=== PATIENT | female | born 1970 | race Caucasian/White ===

== ENCOUNTER 2018-08-08 05:47 | Emergency (ER) | payer SELFPAY ==
--- NOTE | 2018-08-08 07:29 | EDPHYS ---
Physician Documentation [facility] Name: Rachael Barrera Age: 48 yrs Sex: Female : 1970 Arrival Date: 08/08/2018 Time: 05:52 Bed 5 Private MD: ED Physician Mateo Coffey HPI: 08/08 06:20 This 48 yrs old Female presents to ER via Ambulatory with complaints of Ear jr8 Pain. 06:20 The patient presents with pain. The complaints affect the left ear. Onset: The jr8 symptoms/episode began/occurred acutely, yesterday. Modifying factors: The symptoms are alleviated by nothing, the symptoms are aggravated by nothing. Associated signs and symptoms: The patient has no apparent associated signs or symptoms. Severity of symptoms: At their worst the symptoms were mild in the emergency department the symptoms are unchanged. The patient has not experienced similar symptoms in the past. The patient has not recently seen a physician. Patient also wanting to be seen for vaginal pressure. Stated that she feels that she has a ball like feeling in her vagina . 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 - Social history:: Smoking status: Patient uses tobacco products, cigars. - Ebola Screening: : No symptoms or risks identified at this time. ROS: 06:20 Eyes: Negative for injury, pain, redness, and discharge, Neck: Negative for injury, jr8 pain, and swelling, Cardiovascular: Negative for chest pain, palpitations, and edema, Respiratory: Negative for shortness of breath, cough, wheezing, and pleuritic chest pain, Abdomen/GI: Negative for abdominal pain, nausea, vomiting, diarrhea, and constipation, Back: Negative for injury and pain, MS/Extremity: Negative for injury and deformity, Skin: Negative for injury, rash, and discoloration, Neuro: Negative for headache, weakness, numbness, tingling, and seizure. 06:20 ENT: Positive for ear pain, Negative for drainage from ear(s), rhinorrhea, sinus congestion, sinus pain, sore throat. 06:20 : Positive for pelvic pain, Negative for urinary symptoms, vaginal bleeding, vaginal discharge, vaginal itching, menstrual abnormality. Exam: 06:20 Eyes: Pupils equal round and reactive to light, extra-ocular motions intact. Lids and jr8 lashes normal. Conjunctiva and sclera are non-icteric and not injected. Cornea within normal limits. Periorbital areas with no swelling, redness, or edema. ENT: Nares patent. No nasal discharge, no septal abnormalities noted. Tympanic membranes are normal and external auditory canals are clear. Oropharynx with no redness, swelling, or masses, exudates, or evidence of obstruction, uvula midline. Mucous membranes moist. Neck: Trachea midline, no thyromegaly or masses palpated, and no cervical lymphadenopathy. Supple, full range of motion without nuchal rigidity, or vertebral point tenderness. No Meningismus. Cardiovascular: Regular rate and rhythm with a normal S1 and S2. No gallops, murmurs, or rubs. Normal PMI, no JVD. No pulse deficits. Respiratory: Lungs have equal breath sounds bilaterally, clear to auscultation and percussion. No rales, rhonchi or wheezes noted. No increased work of breathing, no retractions or nasal flaring. Abdomen/GI: Soft, non-tender, with normal bowel sounds. No distension or tympany. No guarding or rebound. No evidence of tenderness throughout. Back: No spinal tenderness. No costovertebral tenderness. Full range of motion. Skin: Warm, dry with normal turgor. Normal color with no rashes, no lesions, and no evidence of cellulitis. MS/ Extremity: Pulses equal, no cyanosis. Neurovascular intact. Full, normal range of motion. Neuro: Awake and alert, GCS 15, oriented to person, place, time, and situation. Cranial nerves II-XII grossly intact. Motor strength 5/5 in all extremities. Sensory grossly intact. Cerebellar exam normal. Normal gait. 07:22 : Pelvic Exam: External exam: is normal, no appreciated Bartholin's cyst, no jr8 erythema, not excoriated, no evidence of foreign body, no lesions, no ulcerations, no warts seen, Speculum exam: Negative for tissue in vaginal canal. Cervix without tenderness. Cervical friability and scant bleeding noted around the squamo/epithelial junction , Rectal exam: is normal, no gross blood is appreciated, no masses palpable, Rectal tone: normal, hemorrhoid(s), external, no thrombosis, pain, inflammation , the nurse was present for the exam. Vital Signs: 06:06 BP 125 / 77; Pulse 86; Resp 18; Temp 98.3(O); Pulse Ox 100% on R/A; Weight 57.61 kg; lp1 Height 5 ft. 5 in. (165.10 cm); 06:06 Body Mass Index 21.13 (57.61 kg, 165.10 cm) lp1 MDM: 06:18 Patient medically screened. jr8 07:22 Data reviewed: vital signs, nurses notes, lab test result(s), and as a result, I will jr8 discharge patient. Data interpreted: Pulse oximetry: on room air is 100 %. Interpretation: normal. Counseling: I had a detailed discussion with the patient and/or guardian regarding: the historical points, exam findings, and any diagnostic results supporting the discharge/admit diagnosis, the need for outpatient follow up, an OB/Gyne specialist, to return to the emergency department if symptoms worsen or persist or if there are any questions or concerns that arise at home. ED course: Discussed cervical findings with patient. Need for papsmear as soon as possible to r/o pathology. Otherwise physical exam findings and labs unremarkable . 08/08 06:28 Order name: Urine Dipstick--Ancillary (enter results) 2 08/08 06:19 Order name: Pelvic Exam Setup; Complete Time: 07:22 jr8 08/08 06:19 Order name: Urine Dipstick-Ancillary (obtain specimen); Complete Time: 07:00 [facility] Administered Medications: No medications were administered Disposition: 08/08/18 07:29 Discharged to Home. Impression: Otalgia, left ear, Pelvic and perineal pain. - Condition is Stable. - Discharge Instructions: Pelvic Pain, Female, Cervical Biopsy, Endocervical Curettage. - Medication Reconciliation Form, Thank You Letter, Antibiotic Education, Prescription Opioid Use form. - Follow up: Jasmin Montoya MD; When: 1 - 2 days; Reason: Recheck today's complaints, Continuance of care, Re-evaluation by your physician. - Problem is new. - Symptoms have improved. Addendum: 08/11/2018 19:28 Co-signature as Attending Physician, Mateo Coffey MD. g s Signatures: Dispatcher [employer] Raiza Duarte RN RN sv Kathleen Luong RN RN lp1 Herbert Wolff, SAMANTHA PA jr8 Mateo Coffey MD MD Corrections: (The following items were deleted from the chart) 08/08 07:22 06:19 Urine Test ordered. jr8 07:33 07:29 08/08/2018 07:29 Discharged to Home. Impression: Otalgia, left ear; Pelvic and sv perineal pain. Condition is Stable. Forms are Medication Reconciliation Form, Thank You Letter, Antibiotic Education, Prescription Opioid Use. Follow up: Jasmin Montoya; When: 1 - 2 days; Reason: Recheck today's complaints, Continuance of care, Re-evaluation by your physician. Problem is new. Symptoms have improved. jr8
--- NOTE | 2018-08-08 07:29 | ER ---
Nurse's Notes [facility] Name: Rachael Barrera Age: 48 yrs Sex: Female : 1970 Arrival Date: 08/08/2018 Time: 05:52 Bed 5 Private MD: Diagnosis: Otalgia, left ear;Pelvic and perineal pain Presentation: 08/08 06:05 Presenting complaint: Patient states: Has been having vaginal pain for about 2 months; lp1 "It feels like I'm sitting on an egg or something"; States also concerned she may be beginning to have bilateral ear infections, complaint of slight pain to both ears. Transition of care: patient was not received from another setting of care. Onset of symptoms was August 08, 2018. Risk Assessment: Do you want to hurt yourself or someone else? Patient reports no desire to harm self or others. Initial Sepsis Screen: Does the patient meet any 2 criteria? No. Patient's initial sepsis screen is negative. Does the patient have a suspected source of infection? No. Patient's initial sepsis screen is negative. Care prior to arrival: None. 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 - Social history:: Smoking status: Patient uses tobacco products, cigars. - Ebola Screening: : No symptoms or risks identified at this time. Screenin:21 Abuse screen: Denies threats or abuse. Denies injuries from another. Nutritional lp1 screening: No deficits noted. Tuberculosis screening: No symptoms or risk factors identified. Fall Risk None identified. Assessment: 06:20 General: Appears in no apparent distress. Behavior is appropriate for age. Pain: lp1 Complains of pain in groin Quality of pain is described as burning. Neuro: Level of Consciousness is awake, alert, obeys commands. Cardiovascular: Patient's skin is warm and dry. Respiratory: Respiratory effort is even, unlabored. GI: No deficits noted. : No deficits noted. EENT: Reports pain in left ear and right ear. Derm: Skin is pink, warm \\T\\ dry. Musculoskeletal: Circulation, motion, and sensation intact. 07:33 Reassessment: Patient appears in no apparent distress at this time. No changes from sv previously documented assessment. Patient and/or family updated on plan of care and expected duration. Pain level reassessed. Patient is alert, oriented x 3, equal unlabored respirations, skin warm/dry/pink. Vital Signs: 06:06 BP 125 / 77; Pulse 86; Resp 18; Temp 98.3(O); Pulse Ox 100% on R/A; Weight 57.61 kg; lp1 Height 5 ft. 5 in. (165.10 cm); 06:06 Body Mass Index 21.13 (57.61 kg, 165.10 cm) lp1 ED Course: 05:52 Patient arrived in ED. es 06:05 Kathleen Luong, RN is Primary Nurse. lp1 06:06 Herbert Wolff PA is PHCP. jr8 06:06 Mateo Coffey MD is Attending Physician. jr8 06:06 Triage completed. lp1 06:07 Arm band placed on left wrist. lp1 06:22 Patient has correct armband on for positive identification. lp1 07:10 Assist provider with pelvic exam: Set up pelvic tray. Performed by Herbert SINGH. sv 07:21 Primary Nurse role handed off by Kathleen Luong, TINY sv 07:21 Raiza Crowell RN is Primary Nurse. sv 07:28 Jasmin Montoya MD is Referral Physician. jr8 07:33 Patient did not have IV access during this emergency room visit. sv Administered Medications: No medications were administered Outcome: 07:29 Discharge ordered by . jr8 07:33 Discharged to home ambulatory. sv 07:33 Condition: stable 07:33 Discharge instructions given to patient, Instructed on discharge instructions, follow up and referral plans. Demonstrated understanding of instructions, follow-up care. 07:33 Patient left the ED. sv Signatures: Raiza Crowell, TINY RN Mirna Brown Kathleen Luong RN RN lp1 Herbert Wolff PA PA jr8
[2018-08-08 08:06] LABS: Urine Blood NEGATIVE (NEG); Urine Glucose NEGATIVE (NEG); Urine Protein NEGATIVE (NEG); Urine Specific Gravity <1.005 (1.005-1.030); Urine pH 5.5 (5.0-7.0)
== END 2018-08-08 07:33 | disposition home or self-care (01) ==
LOC: ER 05:47
DX: R10.2 Pelvic and perineal pain (principal); F17.290 Nicotine dependence, other tobacco product, uncomplicated
CPT/HCPCS: 81003; 99283

== ENCOUNTER 2024-04-15 12:46 | Inpatient (IN) | payer OTHER, SELFPAY ==
--- OUTSIDE RECORDS SUMMARY | 2024-04-15 12:49 | XMS REPORT | Continuity of Care Document ---
Author Name Unknown Address [address] [place] [address] [facility] Address [address] [place] [address] Care Team Providers Care Sexton Helper Name Role Phone PCP, PATIENT DOES NOT HAVE A Primary Care Physic joycelyn Unavailable MILADYS CAMACHO Attending Clinician Unavai lable [id number] Attending Clinician Unavailable TIMA MÉNDEZ Attending Clinician UnavailJIA Christianson Attending Clinician UnavailARLIN Zelaya Attending Clinician Unavail maverick WILSON MD Attending Clinician UnavailClemente Gandhi MD Attending Clinician Kaleigh Kulkarni MD Attending Clinician [phone] JULIOCESAR BILLINGSLEY Attending Clinician Unavailable Juliocesar Hopper Attending Clinician [phone] Kaleigh Kulkarni MD Admitting Clinician [phone] KALEIGH KULKARNI Admitting Clinician Unavailable Payers Payer Name Policy Type Policy Number Effective Date Expirati on Date Source [employer] MP [employer] 5 O [employer]ITION IN[employer]CTOR 94 ON 9 [id number] 2024-01-27 00:00:00 Allergies, Adverse Reactions, Alerts Allergy Name Allergy Type Status Severity Reaction(s) Onset Date Inactive Date Treating Clinician Comments Source NO KNOWN ALLERGIE S Drug Class Active [facility] Social History Social Habit Start Date Stop Date Quantity Comments Source Sexual orientation Soy Kaur - External History of tobacco use Passive smoker Fransisca lopez - External ASSERTION Not Fransisca Carr External Alcoholic beverage intake 2024-04-14 00:00:00 2024-04-14 00:00:00 Lifetime non-drinker (finding) Fransisca Kaur - External History of Social function 2024-04-14 00:00:00 2024-04-14 00:00:00 Fransisca Kaur - External Sex 2024-02-11 21:28:22 2024-02-11 21:28:22 Female (finding) Fransisca Kaur - External Exposure to SARS-CoV-2 (event) 2022-07-24 00:00:00 2022-08-03 18:50:00 Not sure [facility] Sex assigned at 1970 00:00:00 1970 00:00:00 F Fransisca Kaur - External Smoking Status Start Date Stop Date Source Tobacco smoking consumption unknown [facility] Occasional tobacco smoker 2024-03-08 00:00:00 Fransisca Kaur - External Medications Ordered Medication Name Filled Medication Name Start Date Stop Date Current Medication? Ordering Clinician Indication Dosage Frequency Signature (SIG) Comments Components Source Ibuprofen (Advil) 200 MG oral Capsule 2023-05 16:03: 12 Yes 200mg Q.25D Take 1 capsule (200 mg total) by mouth every 6 hours as needed for pain. Fransisca Kim l Acetaminoph en (TYLENOL 8 HOUR OR) 2023-05 16:03: 12 Yes Take by mouth. Fransisca Liua l Ibuprofen (Advil) 200 MG oral Capsule 2023-05 13:57: 06 Yes 200mg Q.25D Take 1 capsule (200 mg total) by mouth every 6 hours as needed for pain. Fransisca Liua l Acetaminoph en (TYLENOL 8 HOUR OR) 2023-05 13:57: 06 Yes Take by mouth. Fransisca Liua l Ibuprofen (Advil) 200 MG oral Capsule 2023-0512 10:36: 46 Yes 200mg Q.25D Take 1 capsule (200 mg total) by mouth every 6 hours as needed for pain. Fransisca Kim l Acetaminoph en (TYLENOL 8 HOUR OR) 2023-05 012 10:36: 46 Yes Take by mouth. Fransisca bautista Nitrofurant oin Monohyd Macro (Macrobid) 100 MG oral Capsule 2023-0512 00:00: 00 04-04 00:00 :00 No [id number] 100mg Q.5D Take 1 capsule (100 mg total) by mouth 2 times daily. Fransisca bautista HYDROcodone -acetaminop hen (NORCO 5) 5-325 mg tablet 1 tablet 08-04 04:45: 00 08-04 04:21 :00 No 1{tbl} 1 tablet, Oral, ONCE, 1 dose, On Jud 08/03/22 at 2245, Routine [facility] ketorolac (TORADOL) injection 30 mg 08-04 03:15: 00 08-04 03:15 :00 No 30mg 30 mg, Slow IV Push, ONCE, 1 dose, On Jud 08/03/22 at 2115, Routine [facility] morpHINE (2 mg/mL) injection 2 mg 08-04 03:00: 00 08-04 02:16 :00 No 2mg 2 mg, Slow IV Push, ONCE, 1 dose, On Jud 08/03/22 at 2100, Routine [facility] tetracaine (PONTOCAINE ) 0.5 % ophthalmic drops 2 Drop 08-04 00:15: 00 08-03 21:58 :00 No 2[drp] 2 Drop, Both Eyes, ONCE, 1 dose, On Jud 08/03/22 at 1815, Routine [facility] FENTanyl PF (SUBLIMAZE (PF)) injection 50 mcg 08-03 23:30: 00 08-03 23:30 :00 No 50ug 50 mcg, Slow IV Push, ONCE, 1 dose, On Jud 08/03/22 at 1730, STAT [facility] FENTanyl PF (SUBLIMAZE (PF)) injection 50 mcg 08-03 23:00: 00 08-03 23:04 :00 No 50ug 50 mcg, Slow IV Push, ONCE, 1 dose, On Jud 08/03/22 at 1700, STAT [facility] valACYclovi r 1 gram tablet 08-03 00:00: 00 08-18 04:59 :00 No [id number] 1g Take 1 tablet by mouth in the morning and 1 tablet at noon and 1 tablet in the evening. Do all this for 14 days. [facility] Vital Signs Vital Name Observation Time Observation Value Comments S kishorce Systolic blood pressure 2024-04-14 22:06:00 122 mm[Hg] Fransisca Seybo ld - External Diastolic blood pressure 2024-04-14 22:06:00 76 mm[Hg] Fransisca Seybo ld - External Heart rate 2024-04-14 22:06:00 93 /min Kelse y Seybold - External Body temperature 2024-04-14 22:06:00 36.56 Geri Fransisca Seybold - External Respiratory rate 2024-04-14 22:06:00 18 /min Fransisca Seybold - External Body height 2024-04-14 22:06:00 166.4 cm Evi ey Seybold - External Body weight 2024-04-14 22:06:00 58.06 kg Evi ey Seybold - External BMI 2024-04-14 22:06:00 20.98 kg/m2 Evi ey Seybold - External Oxygen saturation in Arterial blood by Pulse oximetry 2024-04-14 22:06:00 97 /min Fransisca Seybo ld - External Systolic blood pressure 2024-03-08 15:37:00 120 mm[Hg] Fransisca Seybo ld - External Diastolic blood pressure 2024-03-08 15:37:00 72 mm[Hg] Fransisca Seybo ld - External Heart rate 2024-03-08 15:37:00 71 /min Kelse y Seybold - External Body temperature 2024-03-08 15:37:00 36.33 Geri Fransisca Seybold - External Respiratory rate 2024-03-08 15:37:00 18 /min Fransisca Seybold - External Body height 2024-03-08 15:37:00 166.4 cm Evi ey Seybold - External Body weight 2024-03-08 15:37:00 58.423 kg Evi vasquez Seybold - External BMI 2024-03-08 15:37:00 21.11 kg/m2 Evi Kaur - External Oxygen saturation in Arterial blood by Pulse oximetry 2024-03-08 15:37:00 99 /min Fransisca Huang ld - External Systolic blood pressure 2022-08-04 03:44:00 127 mm[Hg] [facility] Diastolic blood pressure 2022-08-04 03:44:00 80 mm[Hg] [facility] Heart rate 2022-08-04 03:44:00 89 /min [facility] Respiratory rate 2022-08-04 03:44:00 18 /min [facility] Oxygen saturation in Arterial blood by Pulse oximetry 2022-08-04 03:44:00 98 /min [facility] Body temperature 2022-08-04 00:50:00 36.67 Geri [facility] Body weight 2022-08-04 00:50:00 60.782 kg [facility] BMI 2022-08-04 00:50:00 24.51 kg/m2 [facility] Systolic blood pressure 2022-08-03 23:12:00 137 mm[Hg] [facility] Diastolic blood pressure 2022-08-03 23:12:00 86 mm[Hg] [facility] Heart rate 2022-08-03 23:12:00 86 /min [facility] Respiratory rate 2022-08-03 23:12:00 17 /min [facility] Oxygen saturation in Arterial blood by Pulse oximetry 2022-08-03 23:12:00 99 /min [facility] Body temperature 2022-08-03 21:23:00 37.28 Geri [facility] Body height 2022-08-03 21:23:00 157.5 cm [facility] Body weight 2022-08-03 21:23:00 65.772 kg [facility] BMI 2022-08-03 21:23:00 26.52 kg/m2 [facility] Encounters Start Date/Time End Date/Time Encounter Type Admission Type Attending [facility] Care Department Encounter ID Source 2024-04-17 11:00:00 2024-04-17 11:00:00 Outpatient MILADYS MARR FRANSISCA MOSS [id number] [facility] 2024-04-14 17:00:00 2024-04-14 17:00:00 Outpatient TRACEY MOSS [id number] [facility] 2024-04-14 16:30:00 2024-04-14 16:30:00 Outpatient TIMA MÉNDEZ [id number] [facility] 2024-04-14 00:00:00 2024-04-14 00:00:00 Outpatient TIMA MÉNDEZ [id number] [facility] 2024-04-04 14:00:00 2024-04-04 14:00:00 Outpatient [facility]IA [facility]IN[facility] [id number] [facility] 2024-03-24 15:00:00 2024-03-24 15:00:00 Outpatient ARLIN SANCHEZ [id number] [facility] 2024-03-24 00:00:00 2024-03-24 00:00:00 Outpatient MD FRANSISCA ZHU [id number] [facility] 2024-03-24 00:00:00 2024-03-24 00:00:00 Outpatient AVILARICKEY SMITHAARON MOSS [id number] [facility] 2024-03-11 00:00:00 2024-03-11 00:00:00 Outpatient EFRAIN LAZARO SONDRAMAYRA MOSS [id number] [facility] 2024-03-08 11:15:00 2024-03-08 11:15:00 Outpatient TRACEY MOSS [id number] [facility] 2024-03-08 10:45:00 2024-03-08 10:45:00 Outpatient AUSTINQING LAZARO AMAROMAYRA MOSS [id number] Fransisca [facility] 2022-08-03 18:53:00 2022-08-03 22:51:00 Emergency Vizzeri Clemente Kulkarni, [facility] [id number] [facility] 2022-08-03 15:27:00 2022-08-03 17:48:00 Emergency X BILLINGSLEYJULIOCESAR [facility] ERT [id number] [facility] 2022-08-03 15:27:00 2022-08-03 17:48:00 Emergency X BILLINGSLEYJULIOCESAR [facility] ERT [id number] [facility] 2022-08-03 15:27:00 2022-08-03 17:48:00 Emergency Juliocesar Billingsley S [facility] [id number] [facility] Notes Date/Time Note Provider Source 2024-04-04 13:57:08 Chief Complaint Patient presents with Cough body aches and not feeling well, cough and congestion Bisi Nichols CMA I [facility]
[2024-04-15 13:58] LABS: Specific Gravity 1.006 (1.005-1.030); Sqamous Epithelial None Seen /HPF (None Seen); Urine Bacteria <20 /HPF (<20); Urine Bilirubin NEGATIVE (Negative); Urine Blood 3+ (Negative); Urine Clarity Extremely Turbid (Clear); Urine Color Dark-Yellow (Yellow); Urine Crystals Unidentified Few /HPF (None Seen); Urine Culture Reflex Order REFLEXED; Urine Glucose NEGATIVE (Negative); Urine Ketones NEGATIVE (Negative); Urine Microscopic Reflex YN ORDER UMIC; Urine Mucus Slight /HPF (None Seen); Urine Nitrite NEGATIVE (Negative); Urine Protein 1+ (Negative); Urine RBC 21-50 /HPF (None Seen); Urine Urobilinogen Normal (Normal); Urine WBC >50 /HPF (<5); Urine WBC Clump Occasional /HPF (None Seen); Urine Yeast (Budding) Many /HPF (None Seen)
[2024-04-15] MEDS ORDERED: MORPHINE 4 MG/ML SYR ONE (14:12)
[2024-04-15] MEDS ORDERED: NA CHLORIDE 0.9% 1,000 ML ONE (14:12)
[2024-04-15] MEDS ORDERED: ONDANSETRON 4 MG/2 ML VIAL ONE ×2 (14:12→16:00)
[2024-04-15 14:20] LABS: Absolute Lymphocytes (CBC) 0.5 K/uL (0.7-4.9); Absolute Monocytes 1.8 K/uL (0.1-1.3); Absolute Neutrophil 15.7 K/uL (1.8-8.0); Basophils % 0.3 % (0-1.3); Hematocrit 35.1 % (36.0-45.0); Hemoglobin 11.8 g/dL (12.0-15.0); Lymphocytes % 2.6 % (15.3-44.8); MCH 32.7 pg (27.0-35.0); MCHC 33.6 g/dL (32.0-36.0); MCV 97.3 fL (80-100); MPV 7.7 fL (7.6-11.3); Monocytes % 9.9 % (3.3-12.3); Neutrophils % 87.2 % (41.7-73.7); Platelets 308 thou/uL (152-406); RBC Red Blood Cell Count 3.61 M/uL (3.86-4.86); Red Cell Distribution Width 12.2 % (12.1-15.2)
[2024-04-15 14:23] LABS: PT Prothrombin Time 14.4 SECONDS (9.4-12.5); Protime INR 1.3
[2024-04-15 14:32] LABS: Albumin 3.3 g/dL (3.4-5.0); Albumin/Globulin Ratio 0.9 (1.1-1.8); Alkaline Phosphatase 88 U/L (45-117); BUN Blood Urea Nitrogen 8 mg/dL (7-18); Bicarbonate 27 mEq/L (21-32); Bilirubin Total 0.6 mg/dL (0.2-1.0); Globulin 3.7 g/dL (2.3-3.5); Glomerular Filtration Rate 98 ml/min (=/>90); Glucose Level 133 mg/dL (74-106); Lipase 11 U/L (13-75); Sodium Level 137 mEq/L (136-145)
[2024-04-15] MEDS ORDERED: NA CHLORIDE 0.9% 50 ML ONE (14:32)
[2024-04-15] MEDS ORDERED: CEFTRIAXONE 1000 MG/VIAL ONE (14:32)
[2024-04-15 14:34] LABS: ALT/SGPT < 14 U/L (13-56); AST/SGOT < 10 U/L (15-37)
[2024-04-15] MEDS ORDERED: POTASSIUM CL SA 10 MEQ TAB PO ONE (14:46)
[2024-04-15] MEDS ORDERED: KETOROLAC 30 MG/ML INJ ONE (16:00)
[2024-04-15] MEDS ORDERED: POTASSIUM 25 MEQ EFFERV TAB ONE (16:00)
--- NOTE | 2024-04-15 16:14 | RAD REPORT ---
EXAMINATION: CT Abdomen Pelvis W Contrast CLINICAL INDICATION: Female, 54 years old. FLANK PAIN TECHNIQUE: CT abdomen and pelvis was performed, after the administration of IV contrast, [facility]. Axial, sagittal and coronal reconstructions were obtained. One or more of the following dose reduction techniques were used: Automated exposure control, adjustment of the mA and k V according to patient size, and iterative reconstruction. Unless otherwise specified, incidental findings do not require dedicated imaging follow-up. COMPARISON: 12/23/2013. FINDINGS: LOWER CHEST: The visualized lung bases are clear apart from dependent bibasilar atelectatic changes. LIVER: Normal in size and contour. No focal lesion. BILIARY SYSTEM: No suspicious abnormalities. SPLEEN: Normal size. No focal lesion. PANCREAS: No mass, ductal dilation, or jl-pancreatic fluid. ADRENALS: Normal; no mass. KIDNEYS: Normal size and contour. No hydronephrosis. 2 mm nonobstructing left renal interpolar calcul us present. URINARY BLADDER: Unremarkable. GASTROINTESTINAL TRACT: No evidence of free air, significant intra-abdominal free fluid, bowel obstru ction or abscess. APPENDIX: Normal appendix. LYMPH NODES: No lymphadenopathy. MUSCULOSKELETAL: No acute or suspicious osseous abnormality. ADDITIONAL FINDINGS: None. IMPRESSION: Left renal interpolar 2 mm nonobstructing calculus. No other acute or concerning abnormalities seen i n the abdomen or pelvis.
--- NOTE | 2024-04-15 16:22 | EDPHYS ---
Physician Documentation [facility] Name: Rachael Barrera Age: 54 yrs Sex: Female : 1970 Arrival Date: 04/15/2024 Time: 12:46 Bed 3 Private MD: ED Physician Luis Motta HPI: 04/15 13:19 This 54 yrs old Female presents to ER via Unassigned with complaints of Back Pain, kb Urinary Problem. 13:20 Patient is a 54-year-old female who presents for bilateral flank pain, dysuria, urinary kb frequency, suprapubic pain, fever, nausea and vomiting that started 3 days ago. Pain aggravated by urination. No alleviating factors.. Historical: - Allergies: 13:22 PENICILLINS; ll1 - PMHx: 13:22 None; ll1 - PSHx: 13:22 None; ll1 - Immunization history:: Adult Immunizations up to date. - Infectious Disease History:: Denies. - Social history:: Smoking status: Patient reports the use of cigarette tobacco products, cigars. ROS: 13:20 Constitutional: As per HPI kb Exam: 13:20 Constitutional: This is a well developed, well nourished patient who is awake, alert, kb and in no acute distress. Head/Face: Normocephalic, atraumatic. ENT: Moist Mucous membranes Cardiovascular: Tachycardic Respiratory: Respirations even and unlabored. No increased work of breathing. Talking in full sentences Abdomen/GI: Soft, non-tender. No distention Skin: Warm, dry with normal turgor. Normal color. MS/ Extremity: Pulses equal, no cyanosis. Neurovascular intact. Full, normal range of motion. Neuro: Awake and alert, GCS 15, oriented to person, place, time, and situation. 13:20 Back: CVA tenderness, that is mild, is noted bilaterally, 14:21 ECG was reviewed by the Attending Physician. kb Vital Signs: 13:17 BP 118 / 73; Pulse 129; Resp 18; Temp 97.5; Pulse Ox 100% ; Weight 58.51 kg; Height 5 ll1 ft. 5 in. ; Pain 10/10; 14:05 BP 119 / 78; Pulse 114; Resp 26; Pulse Ox 94% ; db 14:45 BP 109 / 62; Pulse 105; Resp 20; Pulse Ox 95% ; db 15:54 BP 117 / 68; Pulse 99; Resp 18; Pulse Ox 96% on R/A; db 16:30 BP 103 / 65; Pulse 102; Resp 20; Pulse Ox 95% on R/A; db 17:30 BP 96 / 59; Pulse 98; Resp 18; Temp 97.8; Pulse Ox 96% on R/A; db 13:17 Body Mass Index 21.47 (58.51 kg, 165.1 cm) ll1 13:17 Pain Scale: Adult ll1 MDM: 12:54 Medical Screening Exam initiated kb 13:47 Data reviewed: vital signs, nurses notes. kb 16:19 Differential diagnosis: Pyelonephritis uti, kidney stone. Consideration of kb Admission/Observation Patient was admitted/placed on observation. Escalation of care including admission/observation considered. Management of patient was discussed with the following: Hospitalist: Hospitalist group, accepted for admission under Dr Wright. Counseling: I had a detailed discussion with the patient and/or guardian regarding the historical points, exam findings, and any diagnostic results supporting the discharge/admit diagnosis, lab results, radiology results, the need for further work-up and treatment in the hospital. 04/15 13:20 Order name: CBC with Diff; Complete Time: 16:41 kb 04/15 13:20 Order name: CMP; Complete Time: 14:34 kb 04/15 13:20 Order name: Lipase; Complete Time: 14:34 kb 04/15 13:20 Order name: Urinalysis w/ reflexes; Complete Time: 13:59 kb 04/15 13:22 Order name: Blood Culture Adult (2) 04/15 13:22 Order name: Lactate w/ 2H reflex if indic.; Complete Time: 14:34 kb 04/15 13:22 Order name: Protime (+inr); Complete Time: 14:25 kb 04/15 13:22 Order name: Ptt, Activated; Complete Time: 14:25 kb 04/15 14:02 Order name: Urine Culture EDGA 04/15 16:39 Order name: CBC Smear Scan; Complete Time: 16:41 EDGA 04/15 13:20 Order name: CT Abd/Pelvis - IV Contrast Only; Complete Time: 16:14 kb 04/15 13:22 Order name: EKG; Complete Time: 13:22 kb 04/15 13:20 Order name: IV Saline Lock; Complete Time: 14:19 kb 04/15 13:20 Order name: Labs collected and sent; Complete Time: 14:19 kb 04/15 13:22 Order name: EKG - Nurse/Tech; Complete Time: 14:16 kb EC:21 Rate is 115 beats/min. Rhythm is regular. QRS [place] is Normal. CT interval is normal at kb 116 msec. QRS interval is normal at 88 msec. QT interval is normal at 473 msec. Administered Medications: 14:19 Drug: Ondansetron IVP 4 mg IVP once; over 2 minutes Route: IVP; Site: left antecubital; me1 16:30 Follow up: Response: No adverse reaction db 14:19 Drug: morphine IVP or IV 4 mg IVP once over 4 mins Route: IVP; Infused Over: 4 mins; me1 Site: left antecubital; 16:30 Follow up: Response: No adverse reaction db 14:19 Drug: NS 0.9% IV 1000 ml IV at 1 bolus Per protocol; to be given as a bolus over 60 me1 minutes Route: IV; Rate: 1 bolus; Site: left antecubital; 15:30 Follow up: Response: No adverse reaction; IV Status: Completed infusion; IV Intake: db 1000ml 14:36 Drug: Rocephin IV 1 grams IV at calculated rate once; Given slow IV push per pharmacy db instructions Route: IV; Rate: calculated rate; Site: left antecubital; 15:15 Follow up: Response: No adverse reaction; IV Status: Completed infusion; IV Intake: 50mldb 15:57 Not Given (Physician Discretion): potassium [id number] meq PO once kb 16:00 Drug: Ketorolac IVP 15 mg IVP once Route: IVP; Site: left antecubital; db 17:00 Follow up: Response: No adverse reaction db 16:04 Drug: Ondansetron IVP 4 mg IVP once; over 2 minutes Route: IVP; Site: left antecubital; db 17:00 Follow up: Response: No adverse reaction db 16:06 Drug: Potassium PO Effervescent Tablet 50 mEq PO once; dissolve in 4 ounces of water or db juice Route: PO; 18:04 Follow up: Response: No adverse reaction db Disposition: 13:56 I was immediately available on-site in the Emergency Department for consultation in the ms3 care of the patient. Disposition Summary: 04/15/24 16:21 Hospitalization Ordered Notes: Hospitalization Status: Observation kb Provider: Willard Wright Location: Telemetry/MedSurg (observation) kb Condition: Stable kb Problem: new kb Symptoms: are unchanged kb Bed/Room Type: Standard Room Assignment: 405(04/15/24 17:16) bd Diagnosis - UTI/ Urinary tract infection, site not specified kb - Sepsis, unspecified organism kb Forms: - Medication Reconciliation Form kb - SBAR form kb - Leadership Thank You Letter kb Signatures: Dispatcher [employer] EDMS Flavia Plaza, LABOR COMMISSIONER-C LABOR COMMISSIONER-Ckb Marycarmen Sparks bd Olesya Coffman RN RN ll1 Luis Motta DO DO ms3 Chani Syed, RN RN db Bernice Leos, TINY RN me1 Corrections: (The following items were deleted from the chart) 17:16 16:21 kb bd
--- NOTE | 2024-04-15 16:22 | ER ---
Nurse's Notes [facility] Name: Rachael Barrera Age: 54 yrs Sex: Female : 1970 Arrival Date: 04/15/2024 Time: 12:46 Bed 3 Private MD: Diagnosis: UTI/ Urinary tract infection, site not specified;Sepsis, unspecified organism Presentation: 04/15 13:17 Chief complaint: Patient states: Dysuria and low back pain for 2-3 days with N/V. ll1 Coronavirus screen: Client denies travel out of the [place] in the last 14 days. At this time, the client does not indicate any symptoms associated with coronavirus-19. Ebola Screen: Patient denies travel to an Ebola-affected area in the 21 days before illness onset. Onset of symptoms was April 13, 2024. 13:17 Method Of Arrival: Ambulatory ll1 13:17 Acuity: [place] 3 ll1 14:30 Initial Sepsis Screen: Does the patient meet any 2 criteria? HR > 90 bpm. No. Patient's db initial sepsis screen is negative. Does the patient have a suspected source of infection? No. Patient's initial sepsis screen is negative. Risk Assessment: Do you want to hurt yourself or someone else? Patient reports no desire to harm self or others. Triage Assessment: 13:20 General: Appears distressed, uncomfortable, Behavior is calm, cooperative, appropriate ll1 for age. Pain: Complains of pain in pelvis Quality of pain is described as aching. : Reports burning with urination, cramping, pain urinary frequency. Musculoskeletal: Reports pain in back. Historical: - Allergies: 13:22 PENICILLINS; ll1 - PMHx: 13:22 None; ll1 - PSHx: 13:22 None; ll1 - Immunization history:: Adult Immunizations up to date. - Infectious Disease History:: Denies. - Social history:: Smoking status: Patient reports the use of cigarette tobacco products, cigars. Screenin:20 [facility] ED Fall Risk Assessment (Adult) History of falling in the last 3 months, db including since admission No falls in past 3 months (0 pts) Confusion or Disorientation No (0 pts) Intoxicated or Sedated No (0 pts) Impaired Gait No (0 pts) Mobility Assist Device Used No (0 pt) Altered Elimination No (0 pt) Score/Fall Risk Level 0 - 2 = Low Risk Oriented to surroundings, Maintained a safe environment. Abuse screen: Denies threats or abuse. Denies injuries from another. Nutritional screening: No deficits noted. Tuberculosis screening: No symptoms or risk factors identified. Assessment: 14:45 Reassessment: Patient appears in no apparent distress at this time. Patient and/or db family updated on plan of care and expected duration. Pain level reassessed. Patient is alert, oriented x 3, equal unlabored respirations, skin warm/dry/pink. PATIENT REQUEST TO TAKE POTASSIUM "LATER" TO LET HER STOMACH REST. General: Appears in no apparent distress. comfortable, Behavior is. Neuro: Level of Consciousness is awake, alert, obeys commands, Oriented to person, place, time, situation, Speech is normal. Respiratory: Airway is patent Respiratory effort is even, unlabored, Respiratory pattern is regular, symmetrical. 15:00 Reassessment: Patient appears in no apparent distress at this time. Patient and/or db family updated on plan of care and expected duration. Pain level reassessed. Patient is alert, oriented x 3, equal unlabored respirations, skin warm/dry/pink. 16:15 Reassessment: Patient appears in no apparent distress at this time. Patient and/or db family updated on plan of care and expected duration. Pain level reassessed. Patient is alert, oriented x 3, equal unlabored respirations, skin warm/dry/pink. 17:48 Reassessment: Patient appears in no apparent distress at this time. Patient and/or db family updated on plan of care and expected duration. Pain level reassessed. Patient is alert, oriented x 3, equal unlabored respirations, skin warm/dry/pink. Patient states feeling better. Vital Signs: 13:17 BP 118 / 73; Pulse 129; Resp 18; Temp 97.5; Pulse Ox 100% ; Weight 58.51 kg; Height 5 ll1 ft. 5 in. ; Pain 10/10; 14:05 BP 119 / 78; Pulse 114; Resp 26; Pulse Ox 94% ; db 14:45 BP 109 / 62; Pulse 105; Resp 20; Pulse Ox 95% ; db 15:54 BP 117 / 68; Pulse 99; Resp 18; Pulse Ox 96% on R/A; db 16:30 BP 103 / 65; Pulse 102; Resp 20; Pulse Ox 95% on R/A; db 17:30 BP 96 / 59; Pulse 98; Resp 18; Temp 97.8; Pulse Ox 96% on R/A; db 13:17 Body Mass Index 21.47 (58.51 kg, 165.1 cm) ll1 13:17 Pain Scale: Adult ll1 ED Course: 12:49 Patient arrived in ED. ra3 12:53 Flavia Plaza [facility] kb 12:53 Luis Motta DO is Attending Physician. kb 13:06 Arm band placed on. ll1 13:22 Triage completed. ll1 13:55 Initial lab(s) drawn, by me, sent to lab. First set of blood cultures drawn Urine tm3 collected: clean catch specimen, marvin colored. Inserted saline lock: 22 gauge in left antecubital area, using aseptic technique. 14:06 Bernice Leos, RN is Primary Nurse. me1 14:17 Second set of blood cultures drawn by me. tm3 14:19 CBC with Diff Sent. me1 14:19 CMP Sent. me1 14:19 Lipase Sent. me1 14:20 Client placed on continuous cardiac and pulse oximetry monitoring. NIBP monitoring me1 applied. cafeteria monitor on. Pulse ox on. NIBP on. 15:18 CT Abd/Pelvis - IV Contrast Only In Process Unspecified. EDMS 16:00 Provided Education on: ADMISSION. db 16:21 Willard Wright MD is Hospitalizing Provider. kb 17:00 Warm blanket given. Pillow given. db 18:02 Patient has correct armband on for positive identification. Placed in gown. Bed in low db position. Call light in reach. Side rails up X2. 18:02 No provider procedures requiring assistance completed. Patient admitted, IV remains in db place. Administered Medications: 14:19 Drug: Ondansetron IVP 4 mg IVP once; over 2 minutes Route: IVP; Site: left antecubital; me1 16:30 Follow up: Response: No adverse reaction db 14:19 Drug: morphine IVP or IV 4 mg IVP once over 4 mins Route: IVP; Infused Over: 4 mins; me1 Site: left antecubital; 16:30 Follow up: Response: No adverse reaction db 14:19 Drug: NS 0.9% IV 1000 ml IV at 1 bolus Per protocol; to be given as a bolus over 60 me1 minutes Route: IV; Rate: 1 bolus; Site: left antecubital; 15:30 Follow up: Response: No adverse reaction; IV Status: Completed infusion; IV Intake: db 1000ml 14:36 Drug: Rocephin IV 1 grams IV at calculated rate once; Given slow IV push per pharmacy db instructions Route: IV; Rate: calculated rate; Site: left antecubital; 15:15 Follow up: Response: No adverse reaction; IV Status: Completed infusion; IV Intake: 50mldb 15:57 Not Given (Physician Discretion): potassium meq PO once kb 16:00 Drug: Ketorolac IVP 15 mg IVP once Route: IVP; Site: left antecubital; db 17:00 Follow up: Response: No adverse reaction db 16:04 Drug: Ondansetron IVP 4 mg IVP once; over 2 minutes Route: IVP; Site: left antecubital; db 17:00 Follow up: Response: No adverse reaction db 16:06 Drug: Potassium PO Effervescent Tablet 50 mEq PO once; dissolve in 4 ounces of water or db juice Route: PO; 18:04 Follow up: Response: No adverse reaction db Medication: 17:47 VIS not applicable for this client. db Intake: 15:15 IV: 50ml; Total: 50ml. db 15:30 IV: 1000ml; Total: 1050ml. db Outcome: 16:21 Decision to Hospitalize by Provider. kb 17:48 Admitted to Med/surg db 17:48 Condition: stable 17:48 Instructed on the need for admit, 18:08 Patient left the ED. db Signatures: Dispatcher [employer] Flavia Lacy, ILIA CHINP-Roe Corrales tm3 Olesya Coffman, RN RN ll1 Chani Syed, RN RN db Bernice Leos, TINY RN me1 Sonia Ron 3
[2024-04-15 16:38] LABS: Blood Morphology Comment NOT SEEN (NOT SEEN); Platelet Estimate ADEQ; White Blood Cell Scan OK (OK)
--- NOTE | 2024-04-15 16:49 | P.HP ---
Certification for Inpatient Patient admitted to: Inpatient With expected LOS: >2 Midnights Patient will require the following post-hospital care: None Practitioner: I am a practitioner with admitting privileges, knowledge of patient current condition, hospital course, and medical plan of care. Services: Services provided to patient in accordance with Admission requirements found in Title 42 Section 412.3 of the Code of Federal Regulations Patient History Date of Service: 04/15/24 Reason for admission: Sepsis, UTI History of Present Illness: 54-year-old female with no known past medical history presents to the emergency department with chief complaint of 1 week of dysuria, urinary frequency. She started having vomiting and pain radiating to her back on both sides the past couple of days. She had seen her PCP yesterday and was prescribed Bactrim but unable to fill it until today, she did fill today and took 1 pill but vomited afterwards. She is evaluated in the emergency department her labs are significant for leukocytosis with a white blood cell count of 18 hemoglobin 11.8. 35.1 initial lactate 1.6 potassium 3.0 UA concerning for urinary tract infection, blood and urine cultures obtained. Patient meets criteria for sepsis, still mildly tachycardic with rate of 105 after IV fluids. She will be admitted for further management of sepsis, UTI. 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 - Family History Family History: Reviewed- Non-Contributory - Social History Smoking Status: Current some day smoker Alcohol use: No CD- Drugs: No Caffeine use: Yes Place of Residence: Home Review of Systems 10-point ROS is otherwise unremarkable Gastrointestinal: Nausea, Vomiting, Abdominal Pain Genitourinary: Dysuria, Frequency Physical Examination - Physical Exam General: Alert, In no apparent distress, Oriented x3 HEENT: Atraumatic, PERRLA, EOMI, Sclerae nonicteric Neck: Supple, 2+ carotid pulse no bruit, No LAD, Without JVD or thyroid abnormality Respiratory: Clear to auscultation bilaterally, Normal air movement Cardiovascular: Regular rate/rhythm, Normal S1 S2 Gastrointestinal: Normal bowel sounds, Tenderness (Bilateral CVA tenderness) Musculoskeletal: No tenderness Integumentary: No rashes Neurological: Normal speech, Normal strength at 5/5 x4 extr, Normal tone, Normal affect - Studies Laboratory Data (last 24 hrs) 04/15/24 04/15/24 04/15/24 13:55 13:55 13:55 WBC 18.00 H Hgb 11.8 L Hct 35.1 L Plt Count 308 PT 14.4 H INR 1.30 APTT 48.0 H Sodium 137 Potassium 3.0 L BUN 8 Creatinine 0.73 Glucose 133 H Total Bilirubin 0.6 AST < 10 L ALT < 14 Alkaline Phosphatase 88 Lipase 11 L Assessment and Plan - Plan Assessment: Sepsis secondary to UTI Nausea and vomiting Hypokalemia Plan: Sepsis secondary to UTI Nausea and vomiting Does not meet criteria for severe sepsis or septic shock at this time Continue antibioticsRocephin Await blood/urine cultures As needed pain medications and antiemetics CT negative for acute findings Mild to moderate bilateral CVA tenderness present Hypokalemia Replacement protocol in place DVT PPX: Lovenox Code status: Full Discharge Plan: Home Plan to discharge in: 48 Hours - Advance Directives Does patient have a Living Will: No Does patient have a Durable POA for Healthcare: No - Code Status/Comfort Care Code Status Assessed: Yes (Full code) Critical Care: No Time Spent Managing Pts Care (In Minutes): 57
[2024-04-15] MEDS ORDERED: PHENAZOPYRIDINE 100MG TAB PO PRN (18:10)
[2024-04-15 18:21] VITALS: BMI 21.1
[2024-04-15] MEDS: ONDANSETRON 4 MG/2 ML VIAL IV PRN (19:49)
[2024-04-15] MEDS: MORPHINE 2 MG/ML SYR IV PRN (19:49)
[2024-04-15] MEDS: NA CHLORIDE 0.9% 1,000 ML IV SCH (19:49)
[2024-04-15] MEDS: ENOXAPARIN 40 MG/0.4 ML SQ SCH (19:50)
[2024-04-16 06:15] LABS: Absolute Lymphocytes (CBC) 1.4 K/uL (0.7-4.9); Absolute Monocytes 1.8 K/uL (0.1-1.3); Absolute Neutrophil 15.1 K/uL (1.8-8.0); Basophils % 0.1 % (0-1.3); Hematocrit 30.5 % (36.0-45.0); Hemoglobin 10.3 g/dL (12.0-15.0); Lymphocytes % 7.7 % (15.3-44.8); MCH 32.8 pg (27.0-35.0); MCHC 33.7 g/dL (32.0-36.0); MCV 97.6 fL (80-100); MPV 7.8 fL (7.6-11.3); Monocytes % 9.7 % (3.3-12.3); Neutrophils % 82.5 % (41.7-73.7); Platelets 267 thou/uL (152-406); RBC Red Blood Cell Count 3.13 M/uL (3.86-4.86); Red Cell Distribution Width 12.2 % (12.1-15.2)
[2024-04-16 06:44] LABS: Anion Gap 7.5 mEq/L (5.0-15.0); Potassium 3.5 mEq/L (3.5-5.1)
[2024-04-16] MEDS: CEFTRIAXONE 1,000 MG in NA CHLORIDE 0.9% 50 ML IVPB SCH (08:51)
[2024-04-16] MEDS: POTASSIUM CL SA 10 MEQ TAB PO ONE (08:52)
[2024-04-16] MEDS: PROMETHAZINE INJ 25 MG/ML AMP IV PRN (09:50)
[2024-04-16] MEDS: LIDOCAINE 4% PATCH TOP SCH (09:50)
[2024-04-16] MEDS: POTASSIUM 25 MEQ EFFERV TAB PO ONE (09:50)
--- NOTE | 2024-04-16 09:55 | P.PN ---
Date of Service: 04/16/24 Subjective: Still having back pain "worse with sound" still with nausea as well fevers overnight ROS: 10 point ROS as noted above, otherwise negative Physical exam GEN: Alert, oriented, NAD HEENT: Normal conjunctiva, sclera anicteric CV: Regular rate and rhythm, no edema Pulm: Nonlabored respirations on room air ABD: Soft, nontender, nondistended MSK: No joint tenderness Integumentary: No rashes Neuro: Normal speech, normal affect Vitals reviewed Assessment: Sepsis secondary to UTI Nausea and vomiting Hypokalemia Plan: Sepsis secondary to UTI Nausea and vomiting Does not meet criteria for severe sepsis or septic shock at this time Continue antibioticsRocephin Await blood/urine cultures As needed pain medications and antiemetics CT negative for acute findings Mild to moderate bilateral CVA tenderness present C/O mid pack pain, will try lidoderm patch Hypokalemia Replacement protocol in place DVT PPX: Lovenox Code status: Full Discharge Plan: Home Plan to discharge in: 48 Hours Time Spent Managing Pts Care (In Minutes): 35
[2024-04-16] MEDS: FLUCONAZOLE 200mg IVPB 200 MG/100 ML BAG IV SCH (11:22)
[2024-04-16] MEDS: HYDROMORPHONE HCL 0.5 MG/0.5 ML INJ IV PRN (12:33)
--- NOTE | 2024-04-16 12:35 | RAD REPORT ---
EXAMINATION: ONE VIEW CHEST XR CLINICAL INDICATION: cough, fever TECHNIQUE: Frontal chest projection is submitted. Examination is limited by patient positioning and t echnique. COMPARISON: No prior exam. FINDINGS: Small left apical calcified granuloma. The lungs are otherwise clear. Mild emphysema suspected. The h eart is normal in size. No displaced fractures identified.
[2024-04-17 06:57] LABS: Absolute Lymphocytes (CBC) 1.2 K/uL (0.7-4.9); Absolute Monocytes 1.3 K/uL (0.1-1.3); Absolute Neutrophil 10.1 K/uL (1.8-8.0); Basophils % 0.3 % (0-1.3); Eosinophils % 0.1 % (0-4.4); Hematocrit 28.4 % (36.0-45.0); Hemoglobin 9.8 g/dL (12.0-15.0); Lymphocytes % 9.2 % (15.3-44.8); MCH 33.5 pg (27.0-35.0); MCHC 34.6 g/dL (32.0-36.0); MPV 7.5 fL (7.6-11.3); Monocytes % 10.1 % (3.3-12.3); Neutrophils % 80.3 % (41.7-73.7); Nucleated Red Blood Cells % 0.1 % (0-0); Platelets 264 thou/uL (152-406); RBC Red Blood Cell Count 2.92 M/uL (3.86-4.86); Red Cell Distribution Width 12.3 % (12.1-15.2)
[2024-04-17 07:13] LABS: Anion Gap 7.4 mEq/L (5.0-15.0); Potassium 3.4 mEq/L (3.5-5.1)
[2024-04-17] MEDS: POTASSIUM CL SA 10 MEQ TAB PO ONE (08:24)
--- NOTE | 2024-04-17 11:47 | RAD REPORT ---
EXAMINATION: CT Abdomen Pelvis W Contrast CLINICAL INDICATION: Female, [address], Severe/worsening back pain (left) uti TECHNIQUE: CT abdomen and pelvis was performed, after the administration of IV contrast, as per [facility]. Axial, sagittal and coronal reconstructions were obtained. One or more of the following dose reduction techniques were used: Automated exposure control, adjustment of the mA and k V according to patient size, and iterative reconstruction. Unless otherwise specified, incidental findings do not require dedicated imaging follow-up. COMPARISON: 04/15/2024 CT. FINDINGS: LOWER CHEST: Streaky right basal opacities with subsegmental dependent airspace opacification and bro nchial wall thickening. Trace layering pleural effusions. LIVER: Normal in size and contour. Mild periportal edema. No focal lesion. BILIARY SYSTEM: No suspicious abnormalities. SPLEEN: Normal size. No focal lesion. PANCREAS: No mass, ductal dilation, or jl-pancreatic fluid. ADRENALS: Normal; no mass. KIDNEYS: Normal size and contour. No hydronephrosis. Punctate left interpolar nonobstructing calculus , 1-2 mm URINARY BLADDER: Unremarkable. GASTROINTESTINAL TRACT: No evidence of free air, significant intra-abdominal free fluid, bowel obstru ction or abscess. APPENDIX: Normal appendix. LYMPH NODES: No lymphadenopathy. MUSCULOSKELETAL: No acute or suspicious osseous abnormality. ADDITIONAL FINDINGS: Since the prior exam, there is mildly progressive pattern of retroperitoneal eduard ma, with free fluid accumulation in the deep pelvis and mild pedicles edema. IMPRESSION: Progressive mild retroperitoneal edema, periportal edema, mild free ascites layering in the pelvis, a nd mild pericholecystic fluid. Findings may relate to third spacing/fluid overload, although possibility of an infectious/inflammatory etiology in the abdomen such as hepatitis can be considered . Streaky and subsegmental opacities in the right lung base with trace layering pleural effusions, rais e concern for early pneumonia or atelectasis.
--- NOTE | 2024-04-17 16:11 | P.PN ---
Date of Service: 04/17/24 Subjective: Still having back pain Slightly improved ROS: 10 point ROS as noted above, otherwise negative Physical exam GEN: Alert, oriented, NAD HEENT: Normal conjunctiva, sclera anicteric CV: Regular rate and rhythm, no edema Pulm: Nonlabored respirations on room air ABD: Soft, nontender, nondistended MSK: No joint tenderness, pain in back, below right shoulder blade, no midline tenderness Integumentary: No rashes Neuro: Normal speech, normal affect Vitals reviewed Assessment: Sepsis secondary to UTI Nausea and vomiting Hypokalemia Plan: Sepsis secondary to UTI Nausea and vomiting Does not meet criteria for severe sepsis or septic shock at this time Continue antibioticsRocephin Blood cultures with no growth in 24 hours Urine culture pending final As needed pain medications and antiemetics CT negative for acute findings Repeat CT 04/17 with some periportal edema no other acute findings Slowly improving Hypokalemia Replacement protocol in place DVT PPX: Lovenox Code status: Full Discharge Plan: Home Plan to discharge in: 48 Hours Time Spent Managing Pts Care (In Minutes): 35
[2024-04-17 16:27] LABS: AST/SGOT 11 U/L (15-37); Albumin 2.2 g/dL (3.4-5.0); Albumin/Globulin Ratio 0.6 (1.1-1.8); Alkaline Phosphatase 76 U/L (45-117); Bilirubin Total 0.4 mg/dL (0.2-1.0); Globulin 3.5 g/dL (2.3-3.5); Protein, Total 5.7 g/dL (6.4-8.2)
[2024-04-17 16:32] LABS: ALT/SGPT < 14 U/L (13-56); Bilirubin Direct < 0.2 mg/dL (0-0.2); Bilirubin Indirect, Calculated 0.2 mg/dL (0.2-0.8)
[2024-04-17 22:34] VITALS: O2SAT 98
[2024-04-18 06:28] LABS: Absolute Lymphocytes (CBC) 1.1 K/uL (0.7-4.9); Absolute Monocytes 0.8 K/uL (0.1-1.3); Absolute Neutrophil 4.8 K/uL (1.8-8.0); Basophils % 0.3 % (0-1.3); Eosinophils % 0.2 % (0-4.4); Hematocrit 28.8 % (36.0-45.0); Hemoglobin 9.9 g/dL (12.0-15.0); Lymphocytes % 16.1 % (15.3-44.8); MCH 33.3 pg (27.0-35.0); MCHC 34.3 g/dL (32.0-36.0); MCV 97.1 fL (80-100); MPV 7.5 fL (7.6-11.3); Monocytes % 12.5 % (3.3-12.3); Neutrophils % 70.9 % (41.7-73.7); Platelets 272 thou/uL (152-406); RBC Red Blood Cell Count 2.96 M/uL (3.86-4.86); Red Cell Distribution Width 12.2 % (12.1-15.2)
[2024-04-18 06:51] LABS: AST/SGOT 11 U/L (15-37); Albumin 2.3 g/dL (3.4-5.0); Albumin/Globulin Ratio 0.7 (1.1-1.8); Alkaline Phosphatase 75 U/L (45-117); Anion Gap 6.1 mEq/L (5.0-15.0); BUN Blood Urea Nitrogen 7 mg/dL (7-18); Bicarbonate 29 mEq/L (21-32); Bilirubin Total 0.4 mg/dL (0.2-1.0); Globulin 3.4 g/dL (2.3-3.5); Glomerular Filtration Rate 116 ml/min (=/>90); Glucose Level 88 mg/dL (74-106); Potassium 4.1 mEq/L (3.5-5.1); Protein, Total 5.7 g/dL (6.4-8.2); Sodium Level 135 mEq/L (136-145)
[2024-04-18 06:52] LABS: ALT/SGPT < 14 U/L (13-56)
[2024-04-18] MEDS: HYDROCODONE/APAP 5/325 MG TAB PO PRN (09:49)
--- NOTE | 2024-04-18 15:47 | P.PN ---
Date of Service: 04/18/24 Subjective: Still having back pain Slightly improved No acute events overnight Urine culture returned showing E. coli ROS: 10 point ROS as noted above, otherwise negative Physical exam GEN: Alert, oriented, NAD HEENT: Normal conjunctiva, sclera anicteric CV: Regular rate and rhythm, no edema Pulm: Nonlabored respirations on room air ABD: Soft, nontender, nondistended MSK: No joint tenderness, pain in back, below right shoulder blade, no midline tenderness Integumentary: No rashes Neuro: Normal speech, normal affect Vitals reviewed Assessment: Sepsis secondary to UTI Nausea and vomiting Hypokalemia Plan: Sepsis secondary to UTI Nausea and vomiting Does not meet criteria for severe sepsis or septic shock at this time Continue antibioticsRocephin Blood cultures with no growth in 24 hours Urine culture showing E. coli sensitive to Rocephin As needed pain medications and antiemetics CT negative for acute findings Repeat CT 04/17 with some periportal edema no other acute findings Slowly improving Anticipate discharge tomorrow Hypokalemia Replacement protocol in place DVT PPX: Lovenox Code status: Full Discharge Plan: Home Plan to discharge in: 48 Hours Time Spent Managing Pts Care (In Minutes): 35
[2024-04-18] MEDS: DOCUSATE NA 100 MG CAP PO ONE (16:50)
[2024-04-18] MEDS: POLYETHYL GLY 3350 17 GM/DOSE PO ONE (16:50)
[2024-04-18] MEDS: HYDROMORPHONE HCL 0.5 MG/0.5 ML INJ IV PRN (18:30)
[2024-04-19] MEDS: ACETAMINOPHEN 325 MG TABLET PO PRN (01:41)
[2024-04-19 06:47] LABS: AST/SGOT 13 U/L (15-37); Albumin 2.5 g/dL (3.4-5.0); Albumin/Globulin Ratio 0.7 (1.1-1.8); Alkaline Phosphatase 78 U/L (45-117); BUN Blood Urea Nitrogen 6 mg/dL (7-18); Bicarbonate 28 mEq/L (21-32); Bilirubin Total 0.4 mg/dL (0.2-1.0); Globulin 3.5 g/dL (2.3-3.5); Glomerular Filtration Rate 114 ml/min (=/>90); Glucose Level 88 mg/dL (74-106); Sodium Level 139 mEq/L (136-145)
[2024-04-19 06:53] LABS: ALT/SGPT < 14 U/L (13-56)
--- NOTE | 2024-04-19 09:41 | P.DS ---
Admission Date: 04/15/24 Discharge Date: 04/19/24 Disposition: ROUTINE DISCHARGE Discharge Condition: GOOD Reason for Admission: Sepsis, UTI Brief History of Present Illness: 54-year-old female with no known past medical history presents to the emergency department with chief complaint of 1 week of dysuria, urinary frequency. She started having vomiting and pain radiating to her back on both sides the past couple of days. She had seen her PCP yesterday and was prescribed Bactrim but unable to fill it until today, she did fill today and took 1 pill but vomited afterwards. She is evaluated in the emergency department her labs are significant for leukocytosis with a white blood cell count of 18 hemoglobin 11.8. 35.1 initial lactate 1.6 potassium 3.0 UA concerning for urinary tract infection, blood and urine cultures obtained. Patient meets criteria for sepsis, still mildly tachycardic with rate of 105 after IV fluids. She will be admitted for further management of sepsis, UTI. Hospital Course: Assessment: Sepsis secondary to UTI Clinical pyelonephritis Nausea and vomiting Hypokalemia Patient was admitted to the hospital for UTI, sepsis. Her blood culture showed no growth in 24 hours, urine culture returned with E. coli, similar to her outpatient culture which is able to review on her phone. Urine culture was sensitive to Cipro, she received 4 days of antibiotics inpatient with Rocephin which the E. coli was also sensitive to. Her hospitalization was complicated with back pain, likely clinical pyelonephritis, repeat CT was performed which did not show evidence of renal abscess or other complicating factors. She has remained fever free for 3 days now, white blood cell count within normal limits pain is improved and patient stable for discharge outpatient follow-up at this time. Please follow-up with your primary care doctor in 1 week Prescriptions for nausea medication, antibiotic and pain medicine [facility] [place] Vital Signs/Physical Exam: Temp Pulse Resp BP Pulse Ox 98.0 F 70 17 101/63 96 04/19/24 04:00 04/19/24 04:00 04/19/24 04:00 04/19/24 04:00 04/19/24 04:00 General: Alert, In no apparent distress, Oriented x3 HEENT: Atraumatic, PERRLA Neck: Supple, JVD not distended Respiratory: Clear to auscultation bilaterally, Normal air movement Cardiovascular: Regular rate/rhythm, Normal S1 S2 Gastrointestinal: Normal bowel sounds, No tenderness Musculoskeletal: No tenderness Integumentary: No rashes Neurological: Normal speech, Normal tone, Normal affect Laboratory Data at Discharge: WBC 6.70 thou/uL (4.3-10.9) 04/18/24 05:47 Hgb 9.9 g/dL (12.0-15.0) L 04/18/24 05:47 Hct 28.8 % (36.0-45.0) L 04/18/24 05:47 Plt Count 272 thou/uL (152-406) 04/18/24 05:47 PT 14.4 SECONDS (9.4-12.5) H 04/15/24 13:55 INR 1.30 04/15/24 13:55 APTT 48.0 SECONDS (24.3-36.9) H 04/15/24 13:55 Sodium 139 mEq/L (136-145) 04/19/24 06:07 Potassium 4.0 mEq/L (3.5-5.1) 04/19/24 06:07 BUN 6 mg/dL (7-18) L 04/19/24 06:07 Creatinine 0.45 mg/dL (0.55-1.02) L 04/19/24 06:07 Glucose 88 mg/dL (74-106) 04/19/24 06:07 Total Bilirubin 0.4 mg/dL (0.2-1.0) 04/19/24 06:07 AST 13 U/L (15-37) L 04/19/24 06:07 ALT < 14 U/L (13-56) 04/19/24 06:07 Alkaline Phosphatase 78 U/L (45-117) 04/19/24 06:07 Lipase 11 U/L (13-75) L 04/15/24 13:55 Home Medications: Ciprofloxacin HCl 500 mg PO BID 6 Days #12 tab 04/19/24 Hydrocodone 5/APAP 325 [[place] 5/325] 1 tab PO Q6H PRN #10 tab 04/19/24 Promethazine Tab [Phenergan] 12.5 mg PO Q6HP PRN #10 tab 04/19/24 New Medications: Promethazine Tab [Phenergan] 12.5 mg PO Q6HP PRN #10 tab PRN Reason: Nausea / Vomiting Ciprofloxacin HCl 500 mg PO BID 6 Days #12 tab Hydrocodone 5/APAP 325 [[place] 5/325] 1 tab PO Q6H PRN #10 tab PRN Reason: Pain Physician Discharge Instructions: Patient was admitted to the hospital for UTI, sepsis. Her blood culture showed no growth in 24 hours, urine culture returned with E. coli, similar to her outpatient culture which is able to review on her phone. Urine culture was sensitive to Cipro, she received 4 days of antibiotics inpatient with Rocephin which the E. coli was also sensitive to. Her hospitalization was complicated with back pain, likely clinical pyelonephritis, repeat CT was performed which did not show evidence of renal abscess or other complicating factors. She has remained fever free for 3 days now, white blood cell count within normal limits pain is improved and patient stable for discharge outpatient follow-up at this time. Please follow-up with your primary care doctor in 1 week Prescriptions for nausea medication, antibiotic and pain medicine [facility] [place]. Diet: Regular Activity: Ad radha Followup: SABRINA BENNETT [Primary Care Provider] - Time spent managing pt's care (in minutes): 36
[2024-04-19 10:42] VITALS: BP 114/75; TEMP 98.9
--- NOTE | 2024-04-21 12:14 | EKG ---
Test Date: 2024-04-15 Test Time: 14:15:19 [employer] Day Worker: JENNIFER MEASUREMENT RESULTS: Intervals: Rate: 115 FL: 116 QRSD: 88 QT: 342 QTc: 473 [place]: P: 6 FL: 116 QRS: -20 T: -32 INTERPRETIVE STATEMENTS: Sinus tachycardia Nonspecific ST abnormality Abnormal ECG No previous ECG available for comparison Electronically Signed On 04-21-24 12:06:35 PE ELECTRICAL ENGINEER by Reynaldo Johnson
== END 2024-04-19 10:50 | disposition home or self-care (01) | DRG 872 ==
LOC: ER 12:46 → ERHOLD 16:42 → 4TH 17:38
PROVIDERS: ADMIT Hospitalist; ATTEND Hospitalist
DX: A41.51 Sepsis due to Escherichia coli [E. coli] (principal); N12 Tubulo-interstitial nephritis, not specified as acute or chronic; E87.6 Hypokalemia; F17.210 Nicotine dependence, cigarettes, uncomplicated; Z88.0 Allergy status to penicillin
CPT/HCPCS: 36415; 71045; 74177; 80048; 80053; 80076; 81001; 83605; 83690; 84132; 85025; 85610; 85730; 87040; 87077; 87086; 87088; 87186; 87804; 93005; 96361; 96365; 96375; 99285; J0696; J1171; J1450; J1650; J2003; J2270; J2405; J2550; J7030; Q9967

== ENCOUNTER 2024-06-19 17:16 | Inpatient (IN) | payer OTHER ==
--- OUTSIDE RECORDS SUMMARY | 2024-06-19 17:19 | XMS REPORT | Continuity of Care Document ---
Author Name Unknown Address [address] [facility] [address] th[address] Address [address] [facility] [address] [place] [address] Care Team Providers [facility] [employer] Driver Name Role Phone TIMA MÉNDEZ Attending Clinician Unavailaimee WILSON MD Attending Clinician UnavailLUCILLE Raymond Attending Clinician Unavailable ANY CHANG Attending Clinician Unavailable MILADYS CAMACHO Attending Clinician Unaosmany WEBB Attending Clinician Unavailable JIA SINHA Attending Clinician UnavailARLIN Zelaya Attending Clinician Unavail maverick Payers Payer Name Policy Type Policy Number Effective Date Expirati on Date Source [employer] MP [facility] [address] [employer]INE[employer] 94 ON 9 [id number] 2024 00:00:00 Social History Social Habit Start Date Stop Date Quantity Comments Source Sexual orientation Soy Kaur - External History of tobacco use Passive smoker Fransisca Cheek d - External ASSERTION Not Fransisca Kaur - External Alcoholic beverage intake 2024-04-14 00:00:00 2024-04-14 00:00:00 Lifetime non-drinker (finding) Fransisca Kaur - External History of Social function 2024-04-14 00:00:00 2024-04-14 00:00:00 Fransisca Kaur - External Sex 2024-02-11 21:28:22 2024-02-11 21:28:22 Female (finding) Fransisca Kaur - External Sex assigned at 1970 00:00:00 1970 00:00:00 F Fransisca Kaur - External Smoking Status Start Date Stop Date Source Occasional tobacco smoker 2024-03-08 00:00:00 Fransisca Loredo Medications Ordered Medication Name Filled Medication Name Start Date Stop Date Current Medication? Ordering Clinician Indication Dosage Frequency Signature (SIG) Comments Components Source Ibuprofen (Advil) 200 MG oral Capsule 2023-05 16:03: 12 Yes 200mg Q.25D Take 1 capsule (200 mg total) by mouth every 6 hours as needed for pain. Fransisca bautista Acetaminoph en (TYLENOL 8 HOUR OR) 2023-05 16:03: 12 Yes Take by mouth. Fransisca bautista Ibuprofen (Advil) 200 MG oral Capsule 2023-05 13:57: 06 Yes 200mg Q.25D Take 1 capsule (200 mg total) by mouth every 6 hours as needed for pain. Fransisca bautista Acetaminoph en (TYLENOL 8 HOUR OR) 2023-05 13:57: 06 Yes Take by mouth. Fransisca bautista Ibuprofen (Advil) 200 MG oral Capsule 2023-05 10:36: 46 Yes 200mg Q.25D Take 1 capsule (200 mg total) by mouth every 6 hours as needed for pain. Fransisca bautista Acetaminoph en (TYLENOL 8 HOUR OR) 2023-05 10:36: 46 Yes Take by mouth. Fransisca bautista Nitrofurant oin Monohyd Macro (Macrobid) 100 MG oral Capsule 2023-05 00:00: 00 04-04 00:00 :00 No [id number] 100mg Q.5D Take 1 capsule (100 mg total) by mouth 2 times daily. Fransisca bautista Vital Signs Vital Name Observation Time Observation Value Comments S brendan Systolic blood pressure 2024-04-14 22:06:00 122 mm[Hg] Fransisca yadav - External Diastolic blood pressure 2024-04-14 22:06:00 76 mm[Hg] Fransisca yadav - External Heart rate 2024-04-14 22:06:00 93 /min Venus Kaur - External Body temperature 2024-04-14 22:06:00 36.56 [...] Body weight 2024-03-08 15:37:00 58.423 kg Evi ey Seybold - External BMI 2024-03-08 15:37:00 21.11 kg/m2 Evi ey Seybold - External Oxygen saturation in Arterial blood by Pulse oximetry 2024-03-08 15:37:00 99 /min Fransisca Seybo ld - External Encounters Start Date/Time End Date/Time Encounter Type Admission Type Attending [facility] Care Department Encounter ID Source 2024-05-08 15:15:00 2024-05-08 15:15:00 Outpatient TIMA MÉNDEZ [id number] Fransisca Kaur 2024-05-08 00:00:00 2024-05-08 00:00:00 Outpatient MD FRANSISCA ZHU [id number] Fransisca Kaur 2024-05-05 15:00:00 2024-05-05 15:00:00 Outpatient LUCILLE MAGAÑA [facility]ANSISCA MOSS [id number] [facility] 2024-05-05 00:00:00 2024-05-05 00:00:00 Outpatient TIMA MÉNDEZ FRANSISCA MOSS [id number] [facility] 2024-04-30 10:00:00 2024-04-30 10:00:00 Outpatient BERNARDOANY FRANSISCA MOSS [id number] [facility] 2024-04-17 11:00:00 2024-04-17 11:00:00 Outpatient AUSTIN-MILADYS CAMARA [id number] [facility] 2024-04-17 00:00:00 2024-04-17 00:00:00 Outpatient TIMA MÉNDEZ FRANSISCA MOSS [id number] [facility] 2024-04-14 17:00:00 2024-04-14 17:00:00 Outpatient TRACEY FRANSISCA MOSS [id number] [facility] 2024-04-14 16:30:00 2024-04-14 16:30:00 Outpatient TIMA MÉNDEZ FRANSISCA MOSS [id number] [facility] 2024-04-14 00:00:00 2024-04-14 00:00:00 Outpatient TIMA MÉNDEZ FRANSISCA MOSS [id number] [facility] 2024-04-04 14:00:00 2024-04-04 14:00:00 Outpatient JIA SINHA [id number] [facility] 2024-03-24 15:00:00 2024-03-24 15:00:00 Outpatient LAURA ARLIN FRANSISCA MOSS [id number] Fransisca Seybold 2024-03-24 00:00:00 2024-03-24 00:00:00 Outpatient MD FRANSISCA ZHU [id number] Fransisca Seybold 2024-03-24 00:00:00 2024-03-24 00:00:00 Outpatient AUSTIN-MILADYS CAMARA [id number] Fransisca Seybold 2024-03-11 00:00:00 2024-03-11 00:00:00 Outpatient MILADYS MARR [id number] Fransisca Kaur 2024-03-08 11:15:00 2024-03-08 11:15:00 Outpatient [facility] FRANSISCA MOSS [id number] Fransisca Kaur 2024-03-08 10:45:00 2024-03-08 10:45:00 Outpatient MILADYS MARR [id number] [facility]
[2024-06-19] MEDS ORDERED: ACETAMINOPHEN 500 MG TAB ONE (18:11)
[2024-06-19] MEDS ORDERED: DIPHENHYDRAMINE 50 MG/ML VIAL ONE (18:11)
[2024-06-19] MEDS ORDERED: METOCLOPRAMIDE 10 MG/2mL INJ ONE (18:12)
[2024-06-19] MEDS ORDERED: NA CHLORIDE 0.9% 2,000 ML ONE (18:12)
[2024-06-19 18:28] LABS: Specific Gravity 1.017 (1.005-1.030)
[2024-06-19 18:37] LABS: Specific Gravity 1.017 (1.005-1.030); Sqamous Epithelial <5 /HPF (None Seen); Urine Bacteria <20 /HPF (<20); Urine Bilirubin 1+ (Negative); Urine Blood 1+ (Negative); Urine Clarity Extremely Turbid (Clear); Urine Color Dark-Orange (Yellow); Urine Culture Reflex Order REFLEXED; Urine Glucose NEGATIVE (Negative); Urine Ketones NEGATIVE (Negative); Urine Microscopic Reflex YN ORDER UMIC; Urine Mucus Slight /HPF (None Seen); Urine Nitrite 2+ (Negative); Urine Protein 2+ (Negative); Urine Urobilinogen 1+ (Normal); Urine WBC >50 /HPF (<5); Urine WBC Clump Few /HPF (None Seen)
--- NOTE | 2024-06-19 18:44 | RAD REPORT ---
EXAMINATION: ONE VIEW CHEST XR CLINICAL INDICATION: Female, 54 years old.,fever;Cough TECHNIQUE: Frontal chest projection is submitted. Examination is limited by patient positioning and t echnique. COMPARISON: 04/16/2024 FINDINGS: The lungs are well inflated and clear apart from right more than left basilar atelectatic changes roberto inderjit reticular opacities. Superimposition of soft tissues over the lung bases somewhat limits evaluation. No pneumothorax or sizable effusion. The heart is normal in size. Mediastinal contours ar e unremarkable. IMPRESSION: Reticular opacities which may suggest reactive airway changes or viral infection.
[2024-06-19 18:59] LABS: Absolute Monocytes 2.1 K/uL (0.1-1.3); Absolute Neutrophil 13.1 K/uL (1.8-8.0); Basophils % 0.1 % (0-1.3); Hematocrit 30.2 % (36.0-45.0); Hemoglobin 10.5 g/dL (12.0-15.0); Lymphocytes % 6.4 % (15.3-44.8); MCHC 34.6 g/dL (32.0-36.0); MCV 95.2 fL (80-100); MPV 8.4 fL (7.6-11.3); Monocytes % 12.8 % (3.3-12.3); Neutrophils % 80.7 % (41.7-73.7); Platelets 189 thou/uL (152-406); RBC Red Blood Cell Count 3.18 M/uL (3.86-4.86); Red Cell Distribution Width 13.1 % (12.1-15.2)
[2024-06-19 19:10] LABS: PT Prothrombin Time 12.3 SECONDS (9.4-12.5); PTT, Activated Partial Thromb 39.7 SECONDS (24.3-36.9); Protime INR 1.17
[2024-06-19 19:14] LABS: Albumin/Globulin Ratio 0.8 (1.1-1.8); Anion Gap 12.1 mEq/L (5.0-15.0); Bilirubin Total 0.5 mg/dL (0.2-1.0); Globulin 3.6 g/dL (2.3-3.5); Potassium 3.1 mEq/L (3.5-5.1); Protein, Total 6.6 g/dL (6.4-8.2); Troponin High Sensitivity 9.5 pg/mL (<58.9)
[2024-06-19 19:43] LABS: SARS-CoV-2 Antigen CONTROL BLUE LINE VIS/BG OK; SARS-CoV-2 Antigen Rapid Res Negative (Negative)
[2024-06-19 20:34] LABS: Benzodiazepines NEGATIVE (NEGATIVE); Cocaine NEGATIVE (NEGATIVE); METHAMPHETAM NEGATIVE (NEGATIVE); Phencyclidine NEGATIVE (NEGATIVE); THC Cannibis NEGATIVE (NEGATIVE)
[2024-06-19 20:35] LABS: Barbiturates NEGATIVE (NEGATIVE); Methadone NEGATIVE (NEGATIVE)
[2024-06-19] MEDS ORDERED: CEFTRIAXONE 1000 MG/VIAL ONE (20:40)
[2024-06-19] MEDS ORDERED: KETOROLAC 30 MG/ML INJ ONE (20:41)
--- NOTE | 2024-06-19 21:00 | RAD REPORT ---
EXAM: CT Head Brain Wo Cont HISTORY: MENTAL STATUS CHANGE COMPARISON: None TECHNIQUE: Multiple contiguous axial images were obtained for a CT of the brain without contrast. Sag ittal and coronal reformats were performed. One or more of the following dose reduction techniques were used: Automated exposure control, adjus tment of the mA and kV according to patient size, and iterative reconstruction. Unless otherwise specified, incidental findings do not require dedicated imaging follow-up. FINDINGS: No evidence of hydrocephalus, intracranial hemorrhage, or extra-axial fluid collection. The brain is normal in morphology. The calvarium is intact. The visualized paranasal sinuses and mastoid air cells are essentially clear . IMPRESSION: No evidence of acute intracranial abnormality.
--- NOTE | 2024-06-19 21:11 | RAD REPORT ---
EXAM: CT CHEST, ABDOMEN AND PELVIS WITH CONTRAST CLINICAL INDICATION: Female, 54 years old. cough, abdominal pain TECHNIQUE: CT chest, abdomen, and pelvis was performed, following the administration of contrast, as per department protocol. Axial, sagittal and coronal reconstructions were obtained. One or more of the following dose reduction techniques were used: Automated exposure control, adjustment of the mA a nd/or kV according to patient size, and/or iterative reconstruction. Unless otherwise specified, incidental findings do not require dedicated imaging follow-up. COMPARISON: 04/17/2024 FINDINGS: LUNGS AND AIRWAYS: No evidence of airspace or interstitial process. No nodules. PLEURA: No pleural effusion. No pneumothorax. MEDIASTINUM AND LYMPH NODES: No mediastinal mass or fluid collection. Normal size mediastinal, hilar, and axillary lymph nodes. THORACIC AORTA: Normal caliber and configuration. PULMONARY ARTERIES: Normal caliber. OSSEOUS STRUCTURES AND CHEST WALL: Intact. LIVER: Normal in size and contour. No focal lesion or biliary dilitation. BILIARY SYSTEM: No suspicious abnormalities. PANCREAS: No mass, ductal dilation, or jl-pancreatic fluid. SPLEEN: Normal size. No focal lesion. ADRENALS: Normal; no mass. KIDNEYS AND URETERS: Enlargement of the right kidney, with patchy enhancement throughout the right re nal cortex, and prominent perinephric fat stranding. No hydronephrosis. Nonobstructing left renal interpolar 2 mm calculus. URINARY BLADDER: Normal contour. GASTROINTESTINAL TRACT: No bowel obstruction, free air, significant free fluid or abscess. APPENDIX: No inflammatory changes in region of appendix. LYMPH NODES: No lymphadenopathy. ABDOMINAL AORTA AND OTHER VESSELS: Normal caliber aorta and IVC. MUSCULOSKELETAL: No acute or suspicious osseous abnormality. Breast implants in place. IMPRESSION: Findings suggesting right renal acute pyelonephritis. No evidence of obstruction. Nonobstructing left renal interpolar 2 mm calculus.
[2024-06-19 21:34] LABS: Opiates NEGATIVE (NEGATIVE)
--- NOTE | 2024-06-19 21:51 | ER ---
Nurse's Notes [facility] Name: Rachael Barrera Age: 54 yrs Sex: Female : 1970 Arrival Date: 06/19/2024 Time: 17:16 Bed 13 Private MD: Diagnosis: Sepsis, unspecified organism;Pyelonephritis acute;Altered mental status, unspecified Presentation: 06/19 18:10 Chief complaint: Patient states: Abdominal pain, CODEY flank pain, vomiting, fever X 4 ld1 days. Coronavirus screen: At this time, the client does not indicate any symptoms associated with coronavirus-19. Ebola Screen: No symptoms or risks identified at this time. Initial Sepsis Screen: Does the patient meet any 2 criteria? No. Patient's initial sepsis screen is negative. Does the patient have a suspected source of infection? No. Patient's initial sepsis screen is negative. Risk Assessment: Do you want to hurt yourself or someone else? Patient reports no desire to harm self or others. Onset of symptoms was June 19, 2024. 18:10 Method Of Arrival: Ambulatory ld1 18:10 Acuity: POLINA 2 ld1 Triage Assessment: 18:10 General: Appears in no apparent distress. uncomfortable, Behavior is cooperative, ld1 anxious. Pain: Complains of pain in abdomen Pain does not radiate. Pain currently is 8 out of 10 on a pain scale. Quality of pain is described as throbbing, Pain began suddenly. EENT: No signs and/or symptoms were reported regarding the EENT system. Neuro: Level of Consciousness is awake, alert, confused, Oriented to person, place, time, situation, Appropriate for age. Cardiovascular: Capillary refill < 3 seconds Patient's skin is warm and dry. Rhythm is sinus tachycardia. Respiratory: Airway is patent Respiratory effort is even, labored. GI: Abdomen is flat, non-distended, Reports lower abdominal pain, upper abdominal pain, nausea, vomiting. : No signs and/or symptoms were reported regarding the genitourinary system. : Urine is orange. Derm: Skin temperature is hot. Musculoskeletal: No signs and/or symptoms reported regarding the musculoskeletal system. Historical: - Allergies: 17:57 PENICILLINS; ld1 - Home Meds: 17:57 None [Active]; ld1 - PMHx: 17:57 None; ld1 - PSHx: 17:57 None; ld1 - Immunization history:: Adult Immunizations. - Infectious Disease History:: Denies. - Social history:: Smoking status: Patient denies any tobacco usage or history of. Screenin:10 [facility] ED Fall Risk Assessment (Adult) History of falling in the last 3 months, bp including since admission No falls in past 3 months (0 pts) Confusion or Disorientation No (0 pts) Intoxicated or Sedated No (0 pts) Impaired Gait No (0 pts) Mobility Assist Device Used No (0 pt) Altered Elimination No (0 pt) Score/Fall Risk Level 0 - 2 = Low Risk Oriented to surroundings. Abuse screen: Denies threats or abuse. Denies injuries from another. Nutritional screening: No deficits noted. Tuberculosis screening: No symptoms or risk factors identified. Assessment: 18:10 General: Appears distressed, ill, Behavior is cooperative, agitated, anxious. Pain: bp Complains of pain in abdomen. Neuro: Level of Consciousness is awake, alert, obeys commands, Oriented to Appropriate for age. Cardiovascular: Rhythm is sinus tachycardia. Respiratory: No deficits noted. GI: Bowel sounds present X 4 quads. Abd is soft X 4 quads. : Reports burning with urination. EENT: No deficits noted. Derm: Skin is clammy, Skin temperature is hot. Musculoskeletal: Circulation, motion, and sensation intact. Range of motion:. 19:09 Reassessment: Pt alert and oriented, endorsed pelvic pain 10/10. BP soft, PA notified. ay Vital Signs: 17:50 BP 103 / 66; Pulse 139; Resp 22; Pulse Ox 98% on R/A; db 17:55 Pulse 148; Temp 103.1; ld1 18:00 BP 97 / 71; Pulse 137; Resp 20; Pulse Ox 98% on R/A; db 18:09 Weight 54.43 kg; ld1 19:30 BP 94 / 52; Pulse 114; Resp 19; Temp 100.1; Pulse Ox 97% on R/A; ay 20:28 BP 95 / 56; Pulse 103; Resp 17; Pulse Ox 96% ; ay 22:00 BP 95 / 58; Pulse 99; Resp 20; Pulse Ox 98% on R/A; ay ED Course: 17:23 Patient arrived in ED. sj2 17:49 Fadi Benjamin PA is PHCP. cp 17:50 Daniel Rehman MD is Attending Physician. cp 18:06 Inserted saline lock: 20 gauge in right antecubital area, using aseptic technique. bp 18:10 Chani Syed, RN is Primary Nurse. db 18:10 Triage completed. ld1 18:10 Arm band placed on right wrist. ld1 18:10 Patient has correct armband on for positive identification. bp 18:12 Urinalysis w/ reflexes Sent. ld1 18:12 Urine Drug Screen Sent. ld1 18:16 XRAY Chest (1 view) In Process Unspecified. EDMS 18:16 Urinalysis w/ reflexes Sent. ld1 18:16 Urine Drug Screen Sent. ld1 18:16 Urine Culture Sent. ld1 18:16 Test, Urine Sent. ld1 18:24 Initial lab(s) drawn, by ED staff, sent to lab. First set of blood cultures drawn by ED bp staff, Second set of blood cultures drawn by ED staff, EKG done, by ED staff, reviewed by Fadi SINGH COVID swab sent to lab. Flu and/or RSV swab sent to lab. 19:35 Minerva Gardner, RN is Primary Nurse. ay 20:26 CT Head Brain wo Cont In Process Unspecified. EDMS 20:27 CT Chest, Abdomen, Pelvis - W/Contrast In Process Unspecified. EDMS 21:50 Vignesh Lundberg MD is Hospitalizing Provider. cp 06/20 01:42 Patient admitted, IV remains in place. ay Administered Medications: 06/19 18:45 Drug: Acetaminophen PO 1000 mg PO once Route: PO; bp 18:51 Follow up: Response: No adverse reaction bp 18:45 Drug: metoCLOPramide IVP 10 mg IVP once; over 1 to 2 minutes Route: IVP; Site: right bp forearm; 18:51 Follow up: Response: No adverse reaction bp 18:45 Drug: NS 0.9% IV (30 ml/kg) 30 ml/kg IV at bolus once; Sepsis Protocol; to be given as bp a bolus over 90 minutes Route: IV; Rate: bolus; Site: right forearm; 06/20 01:44 Follow up: Response: No adverse reaction; IV Status: Completed infusion ay 06/19 18:45 Drug: diphenhydrAMINE IVP 25 mg IVP once Route: IVP; Site: right forearm; bp 18:51 Follow up: Response: No adverse reaction bp 20:54 Drug: Rocephin IV 1 grams IV at calculated rate once; Given slow IV push per pharmacy ay instructions Route: IV; Rate: calculated rate; Site: right antecubital; 06/20 01:43 Follow up: IV Status: Completed infusion; IV Intake: 1000ml ay 06/19 20:54 Drug: Ketorolac IVP 15 mg IVP once Route: IVP; Site: right antecubital; ay 06/20 01:43 Follow up: Response: No adverse reaction ay Medication: 06/19 18:10 VIS not applicable for this client. bp Intake: 06/20 01:43 IV: 1000ml; Total: 1000ml. ay Outcome: 06/19 21:51 Decision to Hospitalize by Provider. cp 06/20 01:42 Admitted to Med/surg accompanied by milo alcazar Condition: stable Instructed on the need for admit, 01:46 Patient left the ED. ay Signatures: Dispatcher [employer] EDMS Fadi Benjamin PA PA cp Peltier, Brian, RN RN bp Siobhan Motta RN RN ld1 Chani Syed RN RN db Alin Linda 2 Minerva Gardner RN RN ay
--- NOTE | 2024-06-19 21:51 | EDPHYS ---
Physician Documentation [facility] Name: Rachael Barrera Age: 54 yrs Sex: Female : 1970 Arrival Date: 06/19/2024 Time: 17:16 Bed 13 Private MD: ED Physician Daniel Rehman HPI: 06/19 18:10 This 54 yrs old Female presents to ER via Ambulatory with complaints of Abdominal Pain, cp Back Pain, Vomiting. 18:10 The patient presents with abdominal pain. Associated signs and symptoms: Pertinent cp positives: nausea and vomiting, dysuria, fever, back pain, Pertinent negatives: vomiting blood. The symptoms are described as constant. Severity of pain: in the emergency department the pain is unchanged despite home interventions. 18:10 Onset: The symptoms/episode began/occurred 4 day(s) ago. cp Historical: - Allergies: 17:57 PENICILLINS; ld1 - Home Meds: 17:57 None [Active]; ld1 - PMHx: 17:57 None; ld1 - PSHx: 17:57 None; ld1 - Immunization history:: Adult Immunizations. - Infectious Disease History:: Denies. - Social history:: Smoking status: Patient denies any tobacco usage or history of. ROS: 18:15 Constitutional: Positive for body aches, fever, poor PO intake, cp 18:15 Eyes: Negative for injury, pain, redness, and discharge, cp 18:15 ENT: Negative for drainage from ear(s), ear pain, sore throat, difficulty swallowing, difficulty handling secretions, 18:15 Cardiovascular: Negative for chest pain, edema, 18:15 Respiratory: Positive for cough, Negative for wheezing, 18:15 Abdomen/GI: Positive for abdominal pain, nausea and vomiting, 18:15 Back: Positive for pain at rest, pain with movement, 18:15 : Positive for urinary symptoms, Negative for vaginal bleeding, 18:15 All other systems are negative, cp Exam: 18:20 Constitutional: The patient appears alert, awake, non-diaphoretic, well developed, well cp nourished, obviously ill, in obvious pain, uncomfortable, 18:20 Head/Face: Normocephalic, atraumatic. cp 18:20 Eyes: Periorbital structures: appear normal, Conjunctiva: normal, no exudate, no injection, Sclera: no appreciated abnormality, Lids and lashes: appear normal, bilaterally, 18:20 ENT: External ear(s): are unremarkable, Nose: is normal, Mouth: Lips: dry, Oral mucosa: moist, Posterior pharynx: Airway: no evidence of obstruction, patent, 18:20 Neck: ROM/movement: is normal, is supple, without pain, no range of motions limitations, no meningismus, no nuchal rigidity, 18:20 Chest/axilla: Inspection: normal, 18:20 Cardiovascular: Rate: tachycardic, Rhythm: regular, Edema: is not appreciated, JVD: is not appreciated, 18:20 Respiratory: the patient does not display signs of respiratory distress, Respirations: normal, no use of accessory muscles, no retractions, labored breathing, is not present, Breath sounds: are clear throughout, no decreased breath sounds, no stridor, no wheezing, 18:20 Abdomen/GI: Inspection: abdomen appears normal, Bowel sounds: active, all quadrants, Palpation: soft, in all quadrants, moderate abdominal tenderness, in the right lower quadrant and left lower quadrant, rebound tenderness, is not appreciated, involuntary guarding, is not appreciated, 18:20 Back: pain, that is moderate, of the low back area and mid back area, ROM is painful, with all movement, 18:20 Neuro: Orientation: to person, situation, Mentation: able to follow commands, Motor: moves all fours, no focal deficits, 18:37 ECG was reviewed by the Attending Physician. cp Vital Signs: 17:50 BP 103 / 66; Pulse 139; Resp 22; Pulse Ox 98% on R/A; db 17:55 Pulse 148; Temp 103.1; ld1 18:00 BP 97 / 71; Pulse 137; Resp 20; Pulse Ox 98% on R/A; db 18:09 Weight 54.43 kg; ld1 19:30 BP 94 / 52; Pulse 114; Resp 19; Temp 100.1; Pulse Ox 97% on R/A; ay 20:28 BP 95 / 56; Pulse 103; Resp 17; Pulse Ox 96% ; ay 22:00 BP 95 / 58; Pulse 99; Resp 20; Pulse Ox 98% on R/A; ay MDM: 17:58 Medical Screening Exam initiated cp 18:15 Differential diagnosis: Pyelonephritis, Ureterolithiasis, urinary tract infection, cp sepsis, pneumonia, dehydration, electrolyte abnormality. 20:00 Post IV fluid administration reassessment for Sepsis: Client prescribed 30 mL/kg IVF. Sepsis focused reassessment complete. Heart: Tachycardia noted. Lungs: Noted to be clear bilaterally. Neuro: Neurological examination improved from previous exam. 21:40 Data reviewed: vital signs, nurses notes, lab test result(s), EKG, radiologic studies, cp CT scan, plain films, and as a result, I will admit patient. 21:40 Management of patient was discussed with the following: Hospitalist: DR Lundberg will cp admit after discussion. I considered the following discharge prescriptions or medication management in the emergency department Medications were administered in the Emergency Department. See MAR. Response to treatment: the patient's symptoms have markedly improved after treatment, and as a result, I will admit patient. 06/19 18:09 Order name: Blood Culture Adult (2) 06/19 18:09 Order name: CBC with Diff; Complete Time: 19:37 06/19 19:37 Interpretation: Normal except: WBC 16.30; RBC 3.18; HGB 10.5; HCT 30.2; SHANAE% 80.7; LYM% cp 6.4; MN% 12.8; NEUT A 13.1; MNA 2.1. 06/19 18:09 Order name: CMP; Complete Time: 19:37 06/19 19:37 Interpretation: Normal except: NA 129; K 3.1; CL 96; GLUC 128; GFR 68; ALB 3.0; GLOB cp 3.6; A/G 0.8. 06/19 18:09 Order name: Lactate w/ 2H reflex if indic.; Complete Time: 19:37 06/19 19:41 Interpretation: Reviewed. 06/19 18:09 Order name: Protime (+inr); Complete Time: 19:37 06/19 19:41 Interpretation: Reviewed. 06/19 18: Order name: Ptt, Activated; Complete Time: 19:37 06/19 18:09 Order name: Urinalysis w/ reflexes; Complete Time: 19:37 06/19 19:38 Interpretation: Normal except: [facility] Extremely Turbid; UBILI 1+; UBLD 1+; UPROT 2+; cp UUROB 1+; UNIT 2+; UESTR 500; UWBC >50; URBC 5-10; HYAL 5-10; UWBC Clump Few. 06/19 18:09 Order name: RSV; Complete Time: 20:39 cp 06/19 18:09 Order name: Troponin HS; Complete Time: 19:37 cp 06/19 18:09 Order name: CK; Complete Time: 19:37 cp 06/19 18:09 Order name: Urine Drug Screen; Complete Time: 21:35 cp 06/19 18:09 Order name: Urine Culture cp 06/19 18:09 Order name: Test, Urine; Complete Time: 19:37 cp 06/19 18:09 Order name: Influenza Screen (a \T\ B); Complete Time: 20:39 cp 06/19 18:09 Order name: SARS RAPID; Complete Time: 20:39 cp 06/19 22:22 Order name: Urinalysis w/ reflexes EDMS 06/19 22:22 Order name: CBC with Automated Diff EDMS 06/19 22:22 Order name: CBC with Automated Diff EDMS 06/19 22:22 Order name: Comprehensive Metabolic Panel EDMS 06/19 22:22 Order name: Comprehensive Metabolic Panel EDMS 06/19 18:09 Order name: XRAY Chest (1 view); Complete Time: 19:37 cp 06/19 19:40 Order name: CT Head Brain wo Cont; Complete Time: 21:17 cp 06/19 21:17 Interpretation: Report reviewed. 06/19 19:40 Order name: CT Chest, Abdomen, Pelvis - W/Contrast; Complete Time: 21:17 cp 06/19 21:19 Interpretation: Report reviewed. 06/19 18:09 Order name: EKG; Complete Time: 18:10 06/19 18:09 Order name: Accucheck; Complete Time: 18:48 cp 06/19 18:09 Order name: Cardiac monitoring; Complete Time: 18:12 cp 06/19 18:09 Order name: EKG - Nurse/Tech; Complete Time: 18:48 cp 06/19 18:09 Order name: IV Saline Lock - Large Bore; Complete Time: 18:47 cp 06/19 18:09 Order name: Labs collected and sent; Complete Time: 18:47 06/19 18:09 Order name: O2 Per Protocol; Complete Time: 18:12 cp 06/19 18:09 Order name: O2 Sat Monitoring; Complete Time: 18:12 cp 06/19 18:09 Order name: Vital Signs; Complete Time: 18:12 cp 06/19 21:20 Order name: Vital Signs: please update to include blood pressure; Complete Time: 45 cp EC:37 Rate is 119 beats/min. Rhythm is regular. AK interval is normal. QRS interval is cp normal. QT interval is normal. T waves are Inverted in lead aVR. Interpreted by me. Reviewed by me. Administered Medications: 18:45 Drug: Acetaminophen PO 1000 mg PO once Route: PO; bp 18:51 Follow up: Response: No adverse reaction bp 18:45 Drug: metoCLOPramide IVP 10 mg IVP once; over 1 to 2 minutes Route: IVP; Site: right bp forearm; 18:51 Follow up: Response: No adverse reaction bp 18:45 Drug: NS 0.9% IV (30 ml/kg) 30 ml/kg IV at bolus once; Sepsis Protocol; to be given as bp a bolus over 90 minutes Route: IV; Rate: bolus; Site: right forearm; 06/20 01:44 Follow up: Response: No adverse reaction; IV Status: Completed infusion ay 06/19 18:45 Drug: diphenhydrAMINE IVP 25 mg IVP once Route: IVP; Site: right forearm; bp 18:51 Follow up: Response: No adverse reaction bp 20:54 Drug: Rocephin IV 1 grams IV at calculated rate once; Given slow IV push per pharmacy ay instructions Route: IV; Rate: calculated rate; Site: right antecubital; 06/20 01:43 Follow up: IV Status: Completed infusion; IV Intake: 1000ml ay 06/19 20:54 Drug: Ketorolac IVP 15 mg IVP once Route: IVP; Site: right antecubital; ay 06/20 01:43 Follow up: Response: No adverse reaction ay Disposition Summary: 06/19/24 21:51 Hospitalization Ordered Notes: Hospitalization Status: Inpatient Admission cp Provider: Vignesh Lundberg cp Location: Telemetry/MedSurg (Inpatient) cp Condition: Stable cp Problem: new cp Symptoms: have improved cp Bed/Room Type: Standard cp Room Assignment: 232(06/19/24 23:58) vk Diagnosis - Sepsis, unspecified organism cp - Pyelonephritis acute cp - Altered mental status, unspecified cp Forms: - Medication Reconciliation Form cp - SBAR form cp - Leadership Thank You Letter cp Critical care time excluding procedures: 20:55 Critical care time: Bedside Care: 7 minutes, Consultation: 25 minutes. Total time: 32 cp minutes Signatures: Dispatcher [employer] EDMS Fadi Benjamin PA PA cp Peltier, Brian, RN RN bp Siobhan Motta RN RN ld1 Cristal Mobley Awudu RN RN ay Corrections: (The following items were deleted from the chart) 06/19 18:10 18:10 BLOOD CULTURE*+BA.LAB.BRZ ordered. EDMS EDMS 18:10 18:10 CBC+H.LAB.BRZ ordered. EDMS EDMS 18:10 18:10 COMPREHENSIVE METABOLIC PANEL+C.LAB.BRZ ordered. EDMS EDMS 18:10 18:10 LACTATE+C.LAB.BRZ ordered. EDMS EDMS 18:10 18:10 PROTIME (+INR)+COAG.LAB.BRZ ordered. EDMS EDMS 18:10 18:10 PTT, ACTIVATED+COAG.LAB.BRZ ordered. EDMS EDMS 18:10 18:10 Urinalysis+U.LAB.BRZ ordered. EDMS EDMS 18:10 18:10 Respiratory Syncytial Virus Ag+BA.LAB.BRZ ordered. EDMS EDMS 18:10 18:10 Troponin High Sensitivity+C.LAB.BRZ ordered. EDMS EDMS 18:10 18:10 CREATINE PHOSPHOKINASE+C.LAB.BRZ ordered. EDMS EDMS 18:10 18:10 URINE DRUG SCREEN+UC.LAB.BRZ ordered. EDMS EDMS 18:10 18:10 Urine Culture+BA.LAB.BRZ ordered. EDMS EDMS 18:10 18:10 Test, Urine+UC.LAB.BRZ ordered. EDMS EDMS 18:10 18:10 Influenza Screen (A \T\ B)+BA.LAB.BRZ ordered. EDMS EDMS 18:10 18:10 SARS-COV-2 Antigen Rapid+I.LAB.BRZ ordered. EDMS EDMS 23:58 21:51 cp vk 06/20 02:34 02:31 Constitutional: The patient appears alert, awake, non-diaphoretic, well cp developed, well nourished, obviously ill, in obvious pain, uncomfortable, cp 06/21 01:38 06/19 20:30 Post IV fluid administration reassessment for Sepsis: Client prescribed 30 cp mL/kg IVF. Sepsis focused reassessment complete. Heart: Tachycardia noted. Lungs: Noted to be clear bilaterally. Neuro: Neurological examination improved from previous exam. cp
--- NOTE | 2024-06-19 22:17 | P.HP ---
Certification for Inpatient Patient admitted to: Inpatient With expected LOS: >2 Midnights Practitioner: I am a practitioner with admitting privileges, knowledge of patient current condition, hospital course, and medical plan of care. Services: Services provided to patient in accordance with Admission requirements found in Title 42 Section 412.3 of the Code of Federal Regulations Patient History Date of Service: 06/20/24 Reason for admission: Dysuria History of Present Illness: 54 yo male with no significant past medical history brought to ER with generalized weakness body pain and chills which has been going on for the last 2 days and has been progressively worsening. Associated with back pain and flank pains. Denies any nausea or vomiting Associated with chills. Patient was assessed in the ER and is admitted for further management of pyelonephritis . Allergies No Known Allergies Allergy (Verified 06/20/24 02:30) Home medications list reviewed: Yes Home Medications: Acetaminophen [Tylenol] 650 mg PO Q4H PRN 06/20/24 - Past Medical/Surgical History Past Medical History: Reviewed- Non-Contributory -: None Past Surgical History: Reviewed- Non-Contributory -: None Psychosocial/ Personal History: Works at a local [employer], lives with her brother - Social History Smoking Status: Never smoker Alcohol use: No CD- Drugs: No Caffeine use: Yes Review of Systems 10-point ROS is otherwise unremarkable Physical Examination - Vital Signs Temperature: 99.8 F Blood Pressure: 109/63 Pulse: 128 Respirations: 18 Pulse Ox (%): 94 - Physical Exam General: Alert, In no apparent distress, Oriented x3 HEENT: Atraumatic, Normocephalic Neck: Supple Respiratory: Clear to auscultation bilaterally, Normal air movement Cardiovascular: Normal pulses, Regular rate/rhythm Capillary refill: <2 Seconds Gastrointestinal: Soft and benign, W/out hepatosplenomegaly Musculoskeletal: No clubbing, No swelling Integumentary: No rashes Neurological: Normal strength at 5/5 x4 extr, Cranial nerves 3-12 intact Lymphatics: No axilla or inguinal lymphadenopathy - Studies Laboratory Data (last 24 hrs) 06/19/24 06/19/24 06/19/24 18:25 18:25 18:25 WBC 16.30 H Hgb 10.5 L Hct 30.2 L Plt Count 189 PT 12.3 INR 1.17 APTT 39.7 H Sodium 129 L Potassium 3.1 L BUN 18 Creatinine 0.99 Glucose 128 H Total Bilirubin 0.5 AST 21 ALT 17 Alkaline Phosphatase 83 Microbiology Data (last 24 hrs): 06/19/24 18:43 Nasopharnyx Influenza Type A Antigen Screen - Final 06/19/24 18:43 Nasopharnyx Influenza Type B Antigen Screen - Final 06/19/24 18:43 Nasopharnyx Respiratory Syncytial Virus Ag Scrn - Final Assessment and Plan - Plan Pyelonephritis Started on IV antibiotic Will obtain urine culture Pain medications continued Change antibiotic as per sensitivities Hyponatremia Hypokalemia Acute kidney injury Elevated glucose levels Leukocytosis IV hydration Electrolytes monitor and replace accordingly Will get an A1c GI/DVT prophylaxis Advanced directive full code Discharge Plan: Home Plan to discharge in: 48 Hours - Advance Directives Does patient have a Living Will: No Does patient have a Durable POA for Healthcare: No - Code Status/Comfort Care Code Status: Full Code Time Spent Managing Pts Care (In Minutes): 48
[2024-06-19] MEDS ORDERED: ACETAMINOPHEN 325 MG TABLET PO PRN (22:18)
[2024-06-20] MEDS: NA CHLORIDE 0.9% 1,000 ML IV SCH (01:47)
[2024-06-20] MEDS: ONDANSETRON 4 MG/2 ML VIAL IV PRN (02:01)
[2024-06-20 02:54] VITALS: BMI 20.5
[2024-06-20] MEDS: MORPHINE 2 MG/ML SYR IV PRN (02:58)
[2024-06-20] MEDS: ACETAMINOPHEN 325 MG TABLET PO PRN (04:54)
[2024-06-20 07:18] LABS: Absolute Lymphocytes (CBC) 0.7 K/uL (0.7-4.9); Absolute Monocytes 1.3 K/uL (0.1-1.3); Absolute Neutrophil 11.6 K/uL (1.8-8.0); Basophils % 0.2 % (0-1.3); Hematocrit 28.4 % (36.0-45.0); Hemoglobin 9.8 g/dL (12.0-15.0); Lymphocytes % 4.8 % (15.3-44.8); MCHC 34.5 g/dL (32.0-36.0); MCV 95.7 fL (80-100); MPV 8.4 fL (7.6-11.3); Monocytes % 9.3 % (3.3-12.3); Neutrophils % 85.7 % (41.7-73.7); Platelets 168 thou/uL (152-406); RBC Red Blood Cell Count 2.97 M/uL (3.86-4.86); Red Cell Distribution Width 13.3 % (12.1-15.2)
[2024-06-20 07:33] LABS: Albumin 2.3 g/dL (3.4-5.0); Albumin/Globulin Ratio 0.7 (1.1-1.8); Anion Gap 9.9 mEq/L (5.0-15.0); Bilirubin Total 0.5 mg/dL (0.2-1.0); Globulin 3.3 g/dL (2.3-3.5); Potassium 2.9 mEq/L (3.5-5.1); Protein, Total 5.6 g/dL (6.4-8.2)
[2024-06-20] MEDS: KCL 20 MEQ/100 mL IVPB 20 MEQ/100 ML BAG IV SCH (09:14)
[2024-06-20] MEDS: CEFTRIAXONE 1,000 MG in NA CHLORIDE 0.9% 50 ML IVPB SCH (09:15)
[2024-06-20] MEDS: ENOXAPARIN 40 MG/0.4 ML SQ SCH (09:15)
[2024-06-20 12:43] LABS: Blood Morphology Comment NOT SEEN (NOT SEEN); Dohle Bodies PRESENT; Platelet Estimate ADEQ; Platelets Clumped NOTED; Toxic Granulation PRESENT; White Blood Cell Scan OK (OK)
[2024-06-20] MEDS: HYDROCODONE/APAP 5/325 MG TAB PO PRN (18:22)
--- NOTE | 2024-06-20 18:59 | P.PN ---
Subjective Date of Service: 06/20/24 Chief Complaint: Dysuria Patient complaining of bilateral flank pain and abdominal pain. She has been experiencing intermittent fever. Blood pressure has been borderline low. Physical Examination - Vital Signs Temperature: 98.7 F Blood Pressure: 98/52 Pulse: 111 Respirations: 18 Pulse Ox (%): 94 - Studies Laboratory Data (last 24 hrs) 06/19/24 06/19/24 06/19/24 18:25 18:25 18:25 WBC 16.30 H Hgb 10.5 L Hct 30.2 L Plt Count 189 PT 12.3 INR 1.17 APTT 39.7 H Sodium 129 L Potassium 3.1 L BUN 18 Creatinine 0.99 Glucose 128 H Total Bilirubin 0.5 AST 21 ALT 17 Alkaline Phosphatase 83 Microbiology Data (last 24 hrs): 06/19/24 18:43 Nasopharnyx Influenza Type A Antigen Screen - Final 06/19/24 18:43 Nasopharnyx Influenza Type B Antigen Screen - Final 06/19/24 18:43 Nasopharnyx Respiratory Syncytial Virus Ag Scrn - Final Assessment And Plan - Plan Physical examination General: Alert and oriented x3, NAD, HEENT: Conjunctiva not pale, anicteric sclera Neck: Supple, no elevated JVD Heart: Heart sounds 1 and 2 normal, regular rhythm, normal rate, no pedal edema Lungs: Clear to auscultation bilaterally, adequate breath sounds bilaterally, no rhonchi or crackles. Abdomen: Soft, nondistended, mild epigastric tenderness, normal bowel sounds. Extremities: No tenderness, no deformity Skin: Normal skin turgor, no rash, no nodules or ulcers. Neuro: No focal motor deficit. Normal speech. Psychiatry: Normal mood, no agitation. Assessment and plan Acute pyelonephritis Sepsis Patient with borderline low BP. Repeat normal saline IV bolus Blood cultures: No growth to date. Urine cultures pending. IV Rocephin changed to IV meropenem due to persistent fever and sepsis. Follow urine culture. Analgesics as needed. Hyponatremia Hypokalemia Continue IV hydration Electrolytes monitor and replace accordingly DVT prophylaxis: Kelsy Advanced directive full code
[2024-06-20] MEDS: NA CHLORIDE 0.9% 1,000 ML IV ONE ×2 (19:35→22:00)
[2024-06-21] MEDS: POTASSIUM CL SA 10 MEQ TAB PO ONE ×2 (00:49→16:22)
[2024-06-21] MEDS: Meropenem 1,000 MG in NA CHLORIDE 0.9% 100 ML IV SCH (00:49)
[2024-06-21 08:43] LABS: Absolute Monocytes 1.7 K/uL (0.1-1.3); Absolute Neutrophil 11.6 K/uL (1.8-8.0); Basophils % 0.3 % (0-1.3); Eosinophils % 0.3 % (0-4.4); Hematocrit 26.7 % (36.0-45.0); Hemoglobin 9.2 g/dL (12.0-15.0); Lymphocytes % 6.8 % (15.3-44.8); MCHC 34.5 g/dL (32.0-36.0); MCV 95.6 fL (80-100); MPV 8.4 fL (7.6-11.3); Monocytes % 11.8 % (3.3-12.3); Neutrophils % 80.8 % (41.7-73.7); Platelets 173 thou/uL (152-406); RBC Red Blood Cell Count 2.79 M/uL (3.86-4.86); Red Cell Distribution Width 13.5 % (12.1-15.2)
[2024-06-21 08:53] LABS: Anion Gap 8.3 mEq/L (5.0-15.0); Potassium 3.3 mEq/L (3.5-5.1)
[2024-06-21 09:25] LABS: Magnesium 1.7 mg/dL (1.6-2.4); Phosphorus 2.1 mg/dL (2.5-4.9)
[2024-06-21] MEDS: POTASS/SODIUM PHOSPHATE 1 PKT POWD.PACK PO SCH (15:32)
[2024-06-21] MEDS: MAGNESIUM SULFATE 1 gm IVPB 1 GM/100 ML BAG IV ONE (15:33)
--- NOTE | 2024-06-21 17:20 | P.PN ---
Subjective Date of Service: 06/21/24 Chief Complaint: Dysuria Patient is complaining of persistent pain in the right flank. She still has intermittent fever. Blood pressure is borderline low. No vomiting, no diarrhea. Physical Examination - Vital Signs Temperature: 98.3 F Blood Pressure: 94/58 Pulse: 88 Respirations: 16 Pulse Ox (%): 95 - Studies Microbiology Data (last 24 hrs): 06/19/24 18:14 Clean Catch Urine [place] Count - Final >100,000 CFU/ML. 06/19/24 18:14 Clean Catch Urine - Final Escherichia Coli Assessment And Plan - Plan Physical examination General: Alert and oriented x3, NAD, HEENT: Conjunctiva not pale, anicteric sclera Neck: Supple, no elevated JVD Heart: Heart sounds 1 and 2 normal, regular rhythm, normal rate, no pedal edema Lungs: Clear to auscultation bilaterally, adequate breath sounds bilaterally, no rhonchi or crackles. Abdomen: Soft, nondistended, mild epigastric tenderness, normal bowel sounds. Extremities: No tenderness, no deformity Skin: Normal skin turgor, no rash, no nodules or ulcers. Neuro: No focal motor deficit. Normal speech. Psychiatry: Normal mood, no agitation. Assessment and plan Acute pyelonephritis Sepsis Nephrolithiasis Patient with borderline low BP. Status post IV NS boluses. Continue IV fluid Blood cultures: No growth to date. Urine cultures: E. coli IV Rocephin changed to IV meropenem due to persistent fever and sepsis 06/20. Continue IV meropenem Analgesics as needed. Diet as tolerated. Hyponatremia Hypokalemia Hyponatremia improved. Continue IV hydration Continue to replace electrolytes as needed. DVT prophylaxis: Lovenox Advanced directive full code
[2024-06-21] MEDS: MORPHINE 4 MG/ML SYR IV PRN (18:38)
[2024-06-22 08:17] LABS: Absolute Eosinophils 0.2 K/uL (0-0.5); Absolute Neutrophil 6.1 K/uL (1.8-8.0); Basophils % 0.2 % (0-1.3); Hematocrit 26.7 % (36.0-45.0); Hemoglobin 9.2 g/dL (12.0-15.0); Lymphocytes % 12.2 % (15.3-44.8); MCH 33.1 pg (27.0-35.0); MCHC 34.6 g/dL (32.0-36.0); MCV 95.4 fL (80-100); MPV 7.8 fL (7.6-11.3); Neutrophils % 73.6 % (41.7-73.7); Platelets 214 thou/uL (152-406); Red Cell Distribution Width 13.8 % (12.1-15.2)
[2024-06-22 08:33] LABS: Anion Gap 5.5 mEq/L (5.0-15.0); Potassium 3.5 mEq/L (3.5-5.1)
--- NOTE | 2024-06-22 17:27 | P.PN ---
Subjective Date of Service: 06/22/24 Chief Complaint: Dysuria Patient reports he is feeling much better today. She has not experienced fever today. Blood pressure has improved and she is tolerating diet. Physical Examination - Vital Signs Temperature: 98.4 F Blood Pressure: 109/68 Pulse: 91 Respirations: 16 Pulse Ox (%): 98 Assessment And Plan - Plan Physical examination General: Alert and oriented x3, NAD, HEENT: Conjunctiva not pale, anicteric sclera Neck: Supple, no elevated JVD Heart: Heart sounds 1 and 2 normal, regular rhythm, normal rate, no pedal edema Lungs: Clear to auscultation bilaterally, adequate breath sounds bilaterally, no rhonchi or crackles. Abdomen: Soft, nondistended, mild epigastric tenderness, normal bowel sounds. Extremities: No tenderness, no deformity Skin: Normal skin turgor, no rash, no nodules or ulcers. Neuro: No focal motor deficit. Normal speech. Psychiatry: Normal mood, no agitation. Assessment and plan Acute pyelonephritis Sepsis Nephrolithiasis Blood pressure improved. Overall patient clinically improved. Sepsis resolved. Status post IV NS boluses. Continue IV fluid Blood cultures: No growth to date. Urine cultures: E. coli IV Rocephin changed to IV meropenem due to persistent fever and sepsis 06/20. Patient clinically responded to IV Rocephin. Considering oral ciprofloxacin on discharge. Infectious disease consult. Analgesics as needed. Diet as tolerated. Hyponatremia Hypokalemia Hyponatremia resolved Continue to replace electrolytes as needed. DVT prophylaxis: Lovenox Advanced directive full code
[2024-06-22 23:17] VITALS: O2SAT 95
[2024-06-23] MEDS: NA CHLORIDE 0.9% 100 ML ONE (00:22)
[2024-06-23 06:22] LABS: Absolute Eosinophils 0.2 K/uL (0-0.5); Absolute Lymphocytes (CBC) 1.3 K/uL (0.7-4.9); Absolute Monocytes 0.9 K/uL (0.1-1.3); Absolute Neutrophil 5.4 K/uL (1.8-8.0); Basophils % 0.6 % (0-1.3); Eosinophils % 2.2 % (0-4.4); Hematocrit 29.9 % (36.0-45.0); Hemoglobin 10.2 g/dL (12.0-15.0); Lymphocytes % 16.9 % (15.3-44.8); MCH 32.8 pg (27.0-35.0); MCHC 34.3 g/dL (32.0-36.0); MCV 95.6 fL (80-100); MPV 7.3 fL (7.6-11.3); Monocytes % 11.9 % (3.3-12.3); Neutrophils % 68.4 % (41.7-73.7); Platelets 317 thou/uL (152-406); RBC Red Blood Cell Count 3.13 M/uL (3.86-4.86); Red Cell Distribution Width 13.5 % (12.1-15.2)
[2024-06-23 06:37] LABS: Anion Gap 8.7 mEq/L (5.0-15.0); Magnesium 1.8 mg/dL (1.6-2.4); Phosphorus 2.2 mg/dL (2.5-4.9); Potassium 3.7 mEq/L (3.5-5.1)
[2024-06-23 08:46] VITALS: BP 118/68; TEMP 97.9
--- NOTE | 2024-06-23 09:47 | P.DS ---
Admission Date: 06/19/24 Discharge Date: 06/23/24 Disposition: ROUTINE DISCHARGE Discharge Condition: FAIR Reason for Admission: Dysuria Brief History of Present Illness: 54 yo male with no significant past medical history brought to ER with generalized weakness body pain and chills which has been going on for 2 days associated with back pain and flank pains. Patient was assessed in the ER and is admitted for further management of pyelonephritis. Hospital Course: Patient admitted to the medical floor and the following medical problems addressed: Acute pyelonephritis Sepsis Nephrolithiasis Patient had borderline low blood pressure which improved with IV hydration and antibiotics. Patient initially on IV Rocephin which was changed to IV meropenem due to persistent fever and sepsis. She also received multiple boluses of IV normal saline and hydrated with IV fluid. Sepsis resolved. Blood cultures: No growth to date. Urine cultures: E. coli Patient clinical condition significantly improved, she was ambulatory and tolerating diet. Pain also well-controlled. IV meropenem transition to oral ciprofloxacin on discharge. Hyponatremia Hypokalemia Hyponatremia resolved. Vital Signs/Physical Exam: Temp Pulse Resp BP Pulse Ox 97.9 F 102 H 16 118/68 96 06/23/24 08:00 06/23/24 08:00 06/23/24 08:00 06/23/24 08:00 06/23/24 08:00 General: Alert, In no apparent distress, Oriented x3 HEENT: Mucous membr. moist/pink Neck: Supple, JVD not distended Respiratory: Clear to auscultation bilaterally, Normal air movement Cardiovascular: Regular rate/rhythm, Normal S1 S2 Gastrointestinal: Normal bowel sounds, Soft and benign, Non-distended, No tenderness Musculoskeletal: No swelling Integumentary: No rashes, No cyanosis Neurological: Normal strength at 5/5 x4 extr Laboratory Data at Discharge: WBC 7.90 thou/uL (4.3-10.9) 06/23/24 06:07 Hgb 10.2 g/dL (12.0-15.0) L D 06/23/24 06:07 Hct 29.9 % (36.0-45.0) L 06/23/24 06:07 Plt Count 317 thou/uL (152-406) D 06/23/24 06:07 PT 12.3 SECONDS (9.4-12.5) 06/19/24 18:25 INR 1.17 06/19/24 18:25 APTT 39.7 SECONDS (24.3-36.9) H 06/19/24 18:25 Sodium 136 mEq/L (136-145) 06/23/24 06:07 Potassium 3.7 mEq/L (3.5-5.1) 06/23/24 06:07 BUN 5 mg/dL (7-18) L 06/23/24 06:07 Creatinine 0.40 mg/dL (0.55-1.02) L 06/23/24 06:07 Glucose 100 mg/dL (74-106) 06/23/24 06:07 Phosphorus 2.2 mg/dL (2.5-4.9) L 06/23/24 06:07 Magnesium 1.8 mg/dL (1.6-2.4) 06/23/24 06:07 Total Bilirubin 0.5 mg/dL (0.2-1.0) 06/20/24 06:27 AST 31 U/L (15-37) 06/20/24 06:27 ALT 21 U/L (13-56) 06/20/24 06:27 Alkaline Phosphatase 89 U/L (45-117) 06/20/24 06:27 Home Medications: Acetaminophen [Tylenol] 650 mg PO Q4H PRN 06/20/24 Ciprofloxacin HCl [Cipro] 500 mg PO BID #22 tab 06/23/24 Hydrocodone 5/APAP 325 [[place] 5/325*] 1 tab PO Q4H PRN #12 tab 06/23/24 New Medications: Ciprofloxacin HCl [Cipro] 500 mg PO BID #22 tab Hydrocodone 5/APAP 325 [[place] 5/325*] 1 tab PO Q4H PRN #12 tab PRN Reason: Pain Scale 5-7 (Moderate) Diet: Regular Activity: Ad radha Followup: Elsy Baker MD [Primary Care Provider] - 1-2 Weeks Time spent managing pt's care (in minutes): 32
[2024-06-23] MEDS: POTASSIUM CL SA 10 MEQ TAB PO ONE (10:04)
--- NOTE | 2024-06-25 12:50 | EKG ---
Test Date: 2024-06-19 Test Time: 18:32:10 Commission Auditor: BP MEASUREMENT RESULTS: Intervals: Rate: 119 OR: 122 QRSD: 88 QT: 310 QTc: 436 Baker: P: 51 OR: 122 QRS: 69 T: 50 INTERPRETIVE STATEMENTS: Sinus tachycardia Otherwise normal ECG Compared to ECG 04/15/2024 14:15:19 ST (T wave) deviation no longer present Electronically Signed On 06-25-24 12:38:27 DIRECTOR SALES [employer] MARK[employer]ING by Reynaldo Johnson
== END 2024-06-23 11:02 | disposition home or self-care (01) | DRG 872 ==
LOC: ER 17:16 → ERHOLD 22:18 → 2ND 06-20 01:21
PROVIDERS: ADMIT Family Medicine; ATTEND Internal Medicine
DX: A41.51 Sepsis due to Escherichia coli [E. coli] (principal); N10 Acute pyelonephritis; E87.1 Hypo-osmolality and hyponatremia; N17.9 Acute kidney failure, unspecified; E87.6 Hypokalemia; N20.0 Calculus of kidney; Z88.0 Allergy status to penicillin; Z11.52 Encounter for screening for COVID-19
CPT/HCPCS: 36415; 70450; 71045; 71260; 74177; 80048; 80053; 80307; 81001; 81025; 82550; 83605; 83735; 84100; 84132; 84484; 85025; 85610; 85730; 87040; 87077; 87086; 87088; 87186; 87804; 87807; 87811; 93005; 99285; J0696; J1200; J1650; J2185; J2270; J2405; J2765; J3475; J3480; J7030; Q9967